=== PATIENT | male | born 1960 | race Caucasian/White ===

== ENCOUNTER 2024-06-17 17:48 | Observation (INO) | payer MEDICARE, SELFPAY ==
[2024-06-17] VITALS (11 sets, daily range): BP systolic 89–142; BP diastolic 52–79; PULSE 58–114; RESP 14–23; TEMP 36.6–36.7; O2SAT 88–99; BMI 38.7
--- NOTE | ~2024-06-17 | XR_ITS ---
EXAMINATION: XR chest 1V portable DATE: 06/18/2024 05:41 INDICATION: Altered mental status TECHNIQUE: frontal view of the chest was obtained. COMPARISON: None FINDINGS: Cardiomegaly. Median sternotomy wires, ostial markers and mediastinal surgical clips consistent with prior coronary artery bypass grafting. A few bilateral calcified pulmonary nodules consistent with o ld granulomatous disease, the largest project over the left lower lung zone. No other airspace opacit ies, pulmonary edema, pleural effusion or pneumothorax. IMPRESSION: 1. Cardiomegaly. Reviewed, dictated and finalized at location A. TENDER IMPRESSION: 1. Cardiomegaly.
--- NOTE | ~2024-06-17 | CT_ITS ---
CT brain wo con Ordering provider: Rishi Pena MD History: 63 years Male with . aloc . Comparison: None. Technique: CT of the head without contrast. Radiation reduction technique utilized.The dose-length product was 1513.33 mGy-cm. FINDINGS: BRAIN PARENCHYMA AND CSF SPACES: Mild leukoaraiosis and diffuse cortical atrophy. Mild atheromatous d isease. The No midline shift, mass effect or hemorrhage. The brain parenchyma and CSF spaces are oth erwise normal. VISUALIZED PARANASAL SINUSES: Well aerated. MASTOIDS: Well aerated. BONES: The bones appear intact. SOFT TISSUES: Visualized nasopharynx is normal. Scalp hematoma seen in the right occipital scalp. Ot herwise, Superficial soft tissues are normal. IMPRESSION: No acute intracranial findings. Reviewed, dictated and finalized at location A. PROFILING MACHINE SET UP OPERATOR
--- NOTE | 2024-06-17 17:54 | ECG_ITS ---
Test Date: 2024-06-17 17:56:04 Measurements Intervals Wesley Rate: 109 P: 6 TN: 144 QRS: 16 QRSD: 88 T: 9 QT: 290 QTc: 392 Interpretive Statements SINUS TACHYCARDIA POSSIBLE LEFT ATRIAL ENLARGEMENT [-0.1mV P WAVE IN V1/V2] POOR R-WAVE PROGRESSION ABNORMAL ECG Electronically Signed On 06-18-2024 08:27:46 EXPLOSIVE OPERATOR SUPERVISOR by Brian Arora M.D.
[2024-06-17 18:16] LABS: Basophils Absolute Auto 0.2 K/mm3 (0.0-0.1); Basophils Percent Auto 1.2 % (0.2-1.2); Eosinophils Absolute Auto 0.2 K/mm3 (0-0.3); Eosinophils Percent Auto 1.5 % (0-4.4); Hematocrit 39.7 % (42.0-52.0); Hemoglobin 10.9 g/dL (14.0-18.0); Immature Granulocyte Absolute 0.32 K/mm3 (0.00-0.031); Immature Granulocyte Percent A 2.1 % (0-0.5); Lymphocytes Absolute Auto 2.11 K/mm3 (0.9-3.2); Mean Corpuscular HGB Conc 27.5 g/dl (32-36); Mean Corpuscular Volume 80.2 fl (80-100); Monocytes Absolute Auto 1.2 K/mm3 (0.1-0.6); Monocytes Percent Auto 8.1 % (2.6-8.5); Neutrophils Percent Auto 73.1 % (45.5-73.1); Nucleated Red Blood Cells Perc 0.4 % (0.0-0.2); Platelet Count Result 528 k/mm3 (150-375); Red Blood Count 4.95 M/mm3 (4.6-6.20); Red Cell Distribution Width 18.6 % (11.5-14.5)
[2024-06-17 18:28] LABS: Alanine Aminotransferase 19 U/L (6-50); Albumin Level 3.4 g/dL (3.5-5.1); Alkaline Phosphatase 85 U/L (38-126); Anion Gap 5 mmol/L (4-12); Aspartate Amino Transferase 48 U/L (17-59); Bilirubin,Total 0.6 mg/dL (0.2-1.3); Blood Urea Nitrogen 29 mg/dL (9-20); Carbon Dioxide 28 mmol/L (22-30); Chloride 102 mmol/L (98-107); Estimated CRCL calculation 30 ml/min; Estimated Glomerular Filt Rate 22; Glucose 97 mg/dL (65-110); Potassium 3.9 mmol/L (3.4-5.0); Sodium 135 mmol/L (137-145)
[2024-06-17 18:29] LABS: INR 1.1; Partial Thromboplastin Time 28.3 Seconds (22.3-36.8); Prothrombin Time 14.7 Seconds (11.1-14.7)
[2024-06-17 18:37] LABS: Ethanol < 10 mg/dL (<10)
[2024-06-17 18:41] LABS: Anisocytosis 1+; Hypochromasia 1+; Platelet Estimate Adequate (Adequate)
[2024-06-17 18:42] LABS: Schistocytes None Seen
[2024-06-17 18:44] LABS: Base Excess ABG -0.8 mEq/l (+/-2.0); Carboxyhemoglobin 1.4 % THb (0-2.0); Fractional Inspired Oxygen 32 %; HCO3 ABG 26.3 mEq/l (22.0-26.0); Oxygen Content ABG 14.9 %vol (16.0-22.0); Oxygen Saturation ABG 94.8 % (95.0-100.0); Oxyhemoglobin 94.3 % THb (90.0-100.0); PCO2 ABG 54.9 mmHg (35.0-45.0); PO2 ABG 81.9 mmHg (80.0-100.0); PO2 FiO2 Ratio Arterial Blood 2.56 %; Reduced Hemoglobin 4.3 %THb (0-5.0); Total Hemoglobin 11.2 g/dL (12.0-18.0)
[2024-06-17 18:49] LABS: Device NASAL CANNULA; Site Drawn LEFT BRACHIAL; pH ABG 7.298 (7.350-7.450)
--- NOTE | 2024-06-17 18:54 | PC.NURSE ---
RN tried to get yani of staff at [facility] in [place] for further information on why 911 was called on the pt, received no answer
[2024-06-17 19:16] LABS: Glucose Point of Care 90 mg/dl (65-105)
--- NOTE | 2024-06-17 19:36 | PC.NURSE ---
Report given to Tangela CHAVARRIA, all questions answered
[2024-06-17 19:40] LABS: Add Urine Microscopic? YES; Appearance Urine Clear (Clear); Bacteria Urine None Seen /hpf; Bilirubin Urine Negative (Negative); Blood Urine Negative (Negative); Color Urine Dark Yellow (Yellow); Glucose Urine UA 1+ mg/dL (Negative); Ketones Urine Negative (Negative); Leukocyte Esterase Ur Negative LEU/UL (Negative); Nitrate Urine Negative (Negative); Non Pathogenic Casts 0-2; Protein Urine 1+ mg/dL (Negative); RBC Urine 0-2 /hpf (0-2); Squamous Epithelial Cell Urine None Seen /hpf (Few); WBC Urine 0-5 /hpf (0-3)
[2024-06-17 19:55] LABS: Amphetamine Screen Urine Negative (Negative); Barbiturate Screen Urine Negative (Negative); Benzodiazepines Screen Urine Positive (Negative); Cannabinoid Screen Urine Negative (Negative); Cocaine Screen Urine Positive (Negative); Methadone Screen Urine Negative (Negative); Opiate Screen Urine Positive (Negative); Phencyclidine Screen Urine Negative (Negative)
--- NOTE | 2024-06-17 20:20 | ED_ITS ---
HPI - Altered Mental Status General Chief Complaint: Altered Mental Status Stated Complaint: AMS Time Seen by Provider: 06/17/24 17:52 Source: patient and EMS Mode of arrival: EMS Limitations: altered mental status History of Present Illness HPI narrative: 63-year-old was brought in from held in an with a complaint of altered mental status. patient upon arrival seems to be quite confused as per the paramedics he was hypoxic with 88 % , He denies any ever or CP . he is a poor Historian . we tried to call the motel several times with no response. MD complaint: altered mental status Onset (ago): unknown Severity: moderate Context: unknown Associated symptoms: denies other symptoms Related Data Allergies Allergy/AdvReac Type Severity Reaction Status Date / Time No Known Allergies Allergy Verified 06/17/24 18:06 Review of Systems 2 Review of Systems: ROS unobtainable: Yes unobtainable due to mental status Exam 2 Narrative: GENERAL:Lethargic , well-nourished, and in no acute distress. HEAD: Normocephalic, atraumatic. EYES: PERRLA and EOMI. ENT: Nares clear, no rhinorrhea or epistaxis. Mucous membranes moist. NECK: Supple. CHEST: Clear to auscultation. No respiratory distress. HEART: Regular rate and rhythm. No murmur heard. Normal peripheral pulses. ABDOMEN: Soft, nontender, nondistended, normal active bowel sounds. EXTREMITIES: Normal range of motion , has a surgical scar on the right knee , has an ulcer on the left leg skin around is indurated SKIN: Warm, dry, no rash. NEURO: No focal deficits. Alert and oriented x3. PSYCH: Normal mood and affect. Course Course Emergency Course: patient is now more alert his oxygen level improved informed him about his lab work agreeable with admission, discussed with Dr. Downs accepted the pt. Vital Signs Vital signs: Vital Signs Temperature 36.6 C 06/17/24 17:54 Pulse Rate 111 H 06/17/24 17:54 Respiratory Rate 15 06/17/24 17:54 Blood Pressure 89/54 L 06/17/24 17:54 Pulse Oximetry 88 L 06/17/24 17:54 Oxygen Delivery Room Air 06/17/24 17:54 Temperature 36.6 C 06/17/24 17:54 Pulse Rate 113 H 06/17/24 19:33 Respiratory Rate 20 06/17/24 19:33 Blood Pressure 125/79 06/17/24 19:33 Pulse Oximetry 99 06/17/24 19:39 Oxygen Delivery Nasal Cannula 06/17/24 19:39 Oxygen Flow Rate 3 06/17/24 19:39 MDM - Altered Mental Status Differential Diagnosis Differential diagnosis: Likely altered mental status, dementia and other ( drug abuse) Lab Data Attestation: I reviewed the patient's lab results. 06/17/24 18:10 06/17/24 18:10 Labs: Lab Results 06/17/24 06/17/24 06/17/24 Range/Units 18:09 18:10 18:34 WBC 15.0 H (4.5-10.0) K/mm3 RBC 4.95 (4.6-6.20) M/mm3 Hgb 10.9 L (14.0-18.0) g/dL Hct 39.7 L (42.0-52.0) % MCV 80.2 (80-100) fl MCH 22.0 L (26-34) pg MCHC 27.5 L (32-36) g/dl RDW 18.6 H (11.5-14.5) % Plt Count 528 H (150-375) k/mm3 MPV 9.0 (7.4-10.4) fl Immature Gran % (Auto) 2.1 H (0-0.5) % Neut % (Auto) 73.1 (45.5-73.1) % Lymph % (Auto) 14.0 L (18.3-44.2) % [place] % (Auto) 8.1 (2.6-8.5) % Eos % (Auto) 1.5 (0-4.4) % Baso % (Auto) 1.2 (0.2-1.2) % Lymph # (Auto) 2.11 (0.9-3.2) K/mm3 [place] # (Auto) 1.2 H (0.1-0.6) K/mm3 Eos # (Auto) 0.2 (0-0.3) K/mm3 Baso # (Auto) 0.2 H (0.0-0.1) K/mm3 Abs Immat Gran (auto) 0.32 H (0.00-0.031) K/mm3 Absolute Neuts (auto) 11.0 H (1.3-6.7) K/mm3 Absolute Nucleated RBC 0.060 H (0.0-0.012) K/mm3 Nucleated RBC % 0.4 H (0.0-0.2) % Platelet Estimate Adequate (Adequate) Hypochromasia 1+ Anisocytosis 1+ Schistocytes None seen PT 14.7 (11.1-14.7) Seconds INR 1.1 APTT 28.3 (22.3-36.8) Seconds Methemoglobin 0.0 (0-1.5) %THb Sodium 135 L (137-145) mmol/L Potassium 3.9 (3.4-5.0) mmol/L Chloride 102 (98-107) mmol/L Carbon Dioxide 28 (22-30) mmol/L Anion Gap 5 (4-12) mmol/L BUN 29 H (9-20) mg/dL Creatinine 2.90 H (0.7-1.3) mg/dL Estim Creat Clear Calc 30 ml/min Estimated GFR 22 L (59 - ) Glucose 97 (65-110) mg/dL POC Capillary Glucose (65-105) mg/dl Calcium 8.0 L (8.4-10.2) mg/dL Total Bilirubin 0.6 (0.2-1.3) mg/dL AST 48 (17-59) U/L ALT 19 (6-50) U/L Alkaline Phosphatase 85 (38-126) U/L Total Protein 7.0 (6.3-8.2) g/dL Albumin 3.4 L (3.5-5.1) g/dL Urine Color (Yellow) Urine Appearance (Clear) Urine pH (5.0-9.0) Ur Specific [place] (1.001-1.035) Urine Protein (Negative) mg/dL Urine Glucose (UA) (Negative) mg/dL Urine Ketones (Negative) mg/dL Ur Blood (Man) (Negative) Urine Nitrate (Negative) Urine Bilirubin (Negative) Urine Urobilinogen (<2.0) mg/dL Leukocyte Esterase Rfl (Negative) ELIS/UL Urine RBC (0-2) /hpf Urine WBC (0-3) /hpf Ur Squamous Epith Cells (Few) /hpf Urine Bacteria /hpf Urine Casts Urine Opiates Screen (Negative) Urine Methadone Screen (Negative) Ur Barbiturates Screen (Negative) Ur Phencyclidine Scrn (Negative) Ur Amphetamine Screen (Negative) U Benzodiazepines Scrn (Negative) Urine Cocaine Screen (Negative) U Cannabinoids Screen (Negative) Ethyl Alcohol < 10 (<10) mg/dL 06/17/24 06/17/24 Range/Units 19:12 19:26 WBC (4.5-10.0) K/mm3 RBC (4.6-6.20) M/mm3 Hgb (14.0-18.0) g/dL Hct (42.0-52.0) % MCV (80-100) fl MCH (26-34) pg MCHC (32-36) g/dl RDW (11.5-14.5) % Plt Count (150-375) k/mm3 MPV (7.4-10.4) fl Immature Gran % (Auto) (0-0.5) % Neut % (Auto) (45.5-73.1) % Lymph % (Auto) (18.3-44.2) % [place] % (Auto) (2.6-8.5) % Eos % (Auto) (0-4.4) % Baso % (Auto) (0.2-1.2) % Lymph # (Auto) (0.9-3.2) K/mm3 [place] # (Auto) (0.1-0.6) K/mm3 Eos # (Auto) (0-0.3) K/mm3 Baso # (Auto) (0.0-0.1) K/mm3 Abs Immat Gran (auto) (0.00-0.031) K/mm3 Absolute Neuts (auto) (1.3-6.7) K/mm3 Absolute Nucleated RBC (0.0-0.012) K/mm3 Nucleated RBC % (0.0-0.2) % Platelet Estimate (Adequate) Hypochromasia Anisocytosis Schistocytes PT (11.1-14.7) Seconds INR APTT (22.3-36.8) Seconds Methemoglobin (0-1.5) %THb Sodium (137-145) mmol/L Potassium (3.4-5.0) mmol/L Chloride (98-107) mmol/L Carbon Dioxide (22-30) mmol/L Anion Gap (4-12) mmol/L BUN (9-20) mg/dL Creatinine (0.7-1.3) mg/dL Estim Creat Clear Calc ml/min Estimated GFR (59 - ) Glucose (65-110) mg/dL POC Capillary Glucose 90 (65-105) mg/dl Calcium (8.4-10.2) mg/dL Total Bilirubin (0.2-1.3) mg/dL AST (17-59) U/L ALT (6-50) U/L Alkaline Phosphatase (38-126) U/L Total Protein (6.3-8.2) g/dL Albumin (3.5-5.1) g/dL Urine Color Dark yellow (Yellow) Urine Appearance Clear (Clear) Urine pH 5.0 (5.0-9.0) Ur Specific [place] 1.020 (1.001-1.035) Urine Protein 1+ H (Negative) mg/dL Urine Glucose (UA) 1+ H (Negative) mg/dL Urine Ketones Negative (Negative) mg/dL Ur Blood (Man) Negative (Negative) Urine Nitrate Negative (Negative) Urine Bilirubin Negative (Negative) Urine Urobilinogen 1.0 (<2.0) mg/dL Leukocyte Esterase Rfl Negative (Negative) ELIS/UL Urine RBC 0-2 (0-2) /hpf Urine WBC 0-5 (0-3) /hpf Ur Squamous Epith Cells None seen (Few) /hpf Urine Bacteria None seen /hpf Urine Casts 0-2 Urine Opiates Screen Positive A (Negative) Urine Methadone Screen Negative (Negative) Ur Barbiturates Screen Negative (Negative) Ur Phencyclidine Scrn Negative (Negative) Ur Amphetamine Screen Negative (Negative) U Benzodiazepines Scrn Positive A (Negative) Urine Cocaine Screen Positive A (Negative) U Cannabinoids Screen Negative (Negative) Ethyl Alcohol (<10) mg/dL ABG Data ABG results: 06/17/24 18:34 Puncture Site Left brachial ABG pH 7.298 L* ABG pCO2 54.9 H ABG pO2 81.9 ABG PO2/FiO2 Ratio 2.56 ABG HCO3 26.3 H ABG O2 Saturation 94.8 L ABG O2 Content 14.9 L ABG Base Excess -0.8 A-a Gradient 82.0 Oxyhemoglobin 94.3 Carboxyhemoglobin 1.4 Reduced Hemoglobin 4.3 Total Hemoglobin 11.2 L O2 Delivery Device Nasal cannula O2 Liters/Min 3.0 FiO2 32 Imaging Data Radiologist's impression: ITS Impressions Head CT 06/17/24 19:12 IMPRESSION: No acute intracranial findings. ECG Data EKG #1: ECG completion date: 06/17/24 ECG completion time: 17:56 EKG Interpretation: tachycardia (109), normal QRS, normal QT and NL axis Discharge Plan Discharge Clinical Impression: Cocaine abuse Altered mental status Qualifiers: Altered mental status type: somnolence Qualified Code(s): R40.0 - Somnolence Non-healing ulcer of lower leg Qualifiers: Laterality: left Non-pressure ulcer stage: with fat layer exposed Qualified Code(s): L97.922 - Non-pressure chronic ulcer of unspecified part of left lower leg with fat layer exposed Patient Disposition: Still a Patient Condition: Stable Patient Language: Beninese Follow-up/Referrals: Jcarlos,MD Mauro [Primary Care Provider] - Time of Disposition: 20:42
--- NOTE | 2024-06-17 20:29 | P.HP_ITS ---
H&P: HPI History of Present Illness Date/Time: 06/17/24 20:29 Chief Complaint: ams Narrative: This is a 63-year-old male with past medical history significant for hypertension, obesity, coronary artery disease. Patient was brought to the emergency room from local hotel where he was found unresponsive. Patient has no recollection of events however he has awake alert oriented x3 patient denies any issues at the time of my visit. Preliminary workup was significant for urinalysis positive for cocaine, opiate and benzo. Initially ABG showed a pH of 7.28, pCO2 of 54 PO2 was 81 chemistry panel showed a creatinine of 2.9 BUN of 21. A CT of the head showed no acute intracranial findings. Patient was found to have an ulcer on the left lower extremity on physical exam for which patient had completed course of doxycycline has been present for the last several weeks. Patient has been admitted for further evaluation management and treatment. CT brain wo con Ordering provider: Rishi Pena MD History: 63 years Male with . aloc . Comparison: None. Technique: CT of the head without contrast. Radiation reduction technique utilized.The dose-length product was 1513.33 mGy- cm. FINDINGS: BRAIN PARENCHYMA AND CSF SPACES: Mild leukoaraiosis and diffuse cortical atrophy. Mild atheromatous disease. The No midline shift, mass effect or hemorrhage. The brain parenchyma and CSF spaces are otherwise normal. VISUALIZED PARANASAL SINUSES: Well aerated. MASTOIDS: Well aerated. BONES: The bones appear intact. SOFT TISSUES: Visualized nasopharynx is normal. Scalp hematoma seen in the ri ght occipital scalp. Otherwise, Superficial soft tissues are normal. IMPRESSION: No acute intracranial findings. Review of Systems Review of Systems: [facility] Social History Social History Smoking status: Never smoker Alcohol intake: never Substance use: never Do You Feel Safe in your Home?: Yes Lack of Transportation: YES Lack of Food: Never True Current Housing: I Do Not Have Housing Concerned About Future Housing: YES Difficulty Paying Gas/Electric Bills: No Difficulty Paying for Meds: No Currently Unemployed: No Education: Decline to Answer Difficulty w/ Childcare or Family Care: No Spiritual care concerns: No Meds Home Medications and Allergies Home Medications ?Medication ?Instructions ?Recorded ?Confirmed ?Type albuterol sulfate 90 mcg/actuation 2 puff inhalation Q6H PRN 06/17/24 06/17/24 History aerosol inhaler shortness of breath or wheezing aspirin 81 mg tablet,delayed 81 mg PO DAILY 06/17/24 06/17/24 History release atorvastatin 40 mg tablet 40 mg PO DAILY 06/17/24 06/17/24 History clopidogrel 75 mg tablet 75 mg PO DAILY 06/17/24 06/17/24 History cyclobenzaprine 10 mg tablet 10 mg PO Q8H PRN muscle spasm 06/17/24 06/17/24 History doxycycline hyclate 100 mg capsule 100 mg PO Q12H 06/17/24 06/17/24 History duloxetine 60 mg capsule,delayed 60 mg PO DAILY 06/17/24 06/17/24 History release furosemide 20 mg tablet 20 mg PO DAILY PRN edema 06/17/24 06/17/24 History gabapentin 800 mg tablet 800 mg PO Q8H 06/17/24 06/17/24 History lisinopril 10 mg tablet 10 mg PO DAILY 06/17/24 06/17/24 History metoprolol tartrate 25 mg tablet 12.5 mg PO Q12H 06/17/24 06/18/24 History oxycodone 5 mg tablet 5 mg PO Q6H PRN pain (scale score 06/18/24 06/18/24 History 7-10) tamsulosin 0.4 mg capsule 0.4 mg PO DAILY 06/18/24 06/18/24 History Allergies Allergy/AdvReac Type Severity Reaction Status Date / Time cefepime Allergy Severe Rash Verified 06/17/24 23:47 morphine Allergy Severe Rash Verified 06/17/24 23:47 Vital Signs Vital Signs - 24 hr 06/17/24 17:54 06/17/24 18:04 06/17/24 18:04 Temperature 97.9 F Pulse Rate 111 H 110 H Respiratory Rate 15 Blood Pressure 89/54 L Pulse Oximetry 88 L 95 Oxygen Delivery Room Air Nasal Cannula Oxygen Flow Rate 3 06/17/24 18:04 06/17/24 19:33 06/17/24 19:39 Temperature Pulse Rate 110 H 113 H Respiratory Rate 19 20 Blood Pressure 91/52 L 125/79 Pulse Oximetry 98 96 99 Oxygen Delivery Nasal Cannula Oxygen Flow Rate 3 Exam Narrative: lying in stretcher Const: General: comfortable, no acute distress, well developed, alert, awake and obese Nutritional Appearance: obese Orientation/consciousness: patient oriented x3 HENMT: Head: normal to inspection, normocephalic and atraumatic Ears: he aring grossly normal bilaterally Face/Nose/Sinus: normal facial exam Face and sinus: normal facial exam Eyes: General: appearance normal, both eyes and all related structures Pupils: Equal, round and reactive pupils present EOM: EOMs intact bilaterally Neck: Neck: full ROM, no lymphadenopathy and no JVD Thyroid: thyroid normal Lymphatic: no lymphadenopathy noted Resp: Effort & Inspection: normal respiratory effort and able to speak in complete sentences Auscultation: clear to auscultation bilaterally Cardio: Jugular venous distension: no JVD Rate: regular rate Rhythm: regular rhythm Heart sounds: S1 normal heart sound present and S2 normal heart sound present GI: Inspection: Pannus present and obesity GI Palp: Yes Soft to palpation and Yes No hepatosplenomegaly present : General: Yes deferred Skin: Rashes: no rashes Wounds: wounds noted ulceration left mid leg size, margins well defined and with surrounding erythema, without odor, open and with surrounding erythema Neuro: General: patient oriented x3 and CN's II-XI intact bilaterally Cranial nerves: Yes CN's II-XII intact bilaterally and Yes Equal, round and reactive pupils present Cognition (Neuro): normal cognition Speech: normal speech Gait exam (Neuro): Unable to assess gait Motor exam (neuro): 5/5 motor strength present throughout Extrem: General: normal to inspection, full ROM, no joint enlargement and no pedal edema Other: b/l le ankle edema H&P: Results Labs Labs: Short CBC 06/17/24 Range/Units 18:10 WBC 15.0 H (4.5-10.0) K/mm3 Hgb 10.9 L (14.0-18.0) g/dL Hct 39.7 L (42.0-52.0) % Plt Count 528 H (150-375) k/mm3 BMP 06/17/24 18:10 Sodium 135 L Potassium 3.9 Chloride 102 Carbon Dioxide 28 BUN 29 H Creatinine 2.90 H Glucose 97 Calcium 8.0 L Liver Function 06/17/24 Range/Units 18:10 Total Bilirubin 0.6 (0.2-1.3) mg/dL AST 48 (17-59) U/L ALT 19 (6-50) U/L Alkaline Phosphatase 85 (38-126) U/L Albumin 3.4 L (3.5-5.1) g/dL Urine 06/17/ Range/Units 19:26 Urine Color Dark yellow (Yellow) Urine Appearance Clear (Clear) Urine pH 5.0 (5.0-9.0) Ur Specific [place] 1.020 (1.001-1.035) Urine Protein 1+ H (Negative) mg/dL Urine Glucose (UA) 1+ H (Negative) mg/dL Assessment and Plan Assessment and plan (1) Non-healing ulcer of lower leg: Qualifiers: Laterality: left Non-pressure ulcer stage: with fat layer exposed Qualified Code(s): L97.922 - Non-pressure chronic ulcer of unspecified part of left lower leg with fat layer exposed Code(s): L97.909 - Non-pressure chronic ulcer of unspecified part of unspecified lower leg with unspecified severity Status: Acute Assessment and Plan: Patient initially started on cefazolin however states that he is allergic to cefazolin Currently on clindamycin Wound care consult (2) Cocaine abuse: Code(s): F14.10 - Cocaine abuse, uncomplicated Status: Acute Assessment and Plan: Continue to monitor (3) Altered mental status: Qualifiers: Altered mental status type: somnolence Qualified Code(s): R40.0 - Somnolence Code(s): R41.82 - Altered mental status, unspecified Status: Acute Assessment and Plan: Likely secondary to ingestion of recreational drugs CT head reviewed (4) Obesity (BMI 35.0-39.9 without comorbidity): Code(s): E66.9 - Obesity, unspecified Status: Acute Assessment and Plan: 1800 calorie restricted diet (5) CAD (coronary artery disease): Code(s): I25.10 - Atherosclerotic heart disease of [place] coronary artery without angina pectoris Status: Acute Assessment and Plan: Continue metoprolol (6) Renal failure: Code(s): N19 - Unspecified kidney failure Status: Acute Assessment and Plan: Patient with a creatinine of 2.9 BUN is 21 Most likely to be chronic however no prior values for comparison Will hold lisinopril in the meantime Gentle hydration Avoid nephrotoxins Daily BMP Hospitalist MIPS Advance Care Plan I have confirmed that the patient's Advanced Care Plan is present, code status is documented, or surrogate decision maker is listed in patient medical record.: Yes Medication Reconciliation I have utilized all available resources to obtain, update and review the patients current medications (includes all prescriptions, OTC, herbals, cannabis, and nutritional supplements).: Yes
--- NOTE | 2024-06-17 20:55 | PC.NURSE ---
upon reassessment of patient.pt was found sitting on the edge of the bed with vital equipment off and oxygen tubing off. pt states, they told me it was time to go . this rn asked for patient to get back into the bed and reapplied vital equipment to patient. pt was a o x 2 upon reassessment. pt did not know his location but was aware of the year, and his name,
--- NOTE | 2024-06-17 22:04 | PC.NURSE ---
pt attempting to get out of bed again. this rn reoriented patient to surroundings and where and why he was here. pt had removed vital equipment at this time. pt unaware of why he is here and states he is in the library. this rn placed put oxygen back onto patient due to low oxygen saturation at this time. pt vitals are 97% on nasal cannula, sinus tachycardia at 113, 13 RR, and bp of 97/59. pt is ao x2 at this time.
[2024-06-17] MEDS: ceFAZolin 1 GM/NS 50 ML 1 GM/50 ML BAG IVPB (22:09)
--- NOTE | 2024-06-17 23:03 | PC.NURSE ---
This patient, Abhinav Corbin, was admitted to IMU Room 231-01. Patient/family oriented to hospital policies and general routines including ID bracelet, bed and alarms, visiting hours, pain management, procedures, bathroom and other care routines, personal items, smoking policy, room service/diet, and visiting hours. Information on how to activate the Rapid Response Team has been discussed. Patient/Family are encouraged to report perceived risks to care and to ask questions if they do not understand what they are told or what they should do.
[2024-06-17 23:58] LABS: Lactic Acid Reflex 1.4 mmol/L (0.7-2.0)
[2024-06-18] VITALS (10 sets, daily range): BP systolic 114–145; BP diastolic 58–89; PULSE 99–109; RESP 18; TEMP 36.4–36.7; O2SAT 93–100
--- NOTE | 2024-06-18 | ECHO_ITS ---
Patient Info Name: Abhinav Corbin Age: 63 years : 1960 Gender: Male Ht: 66 in Wt: 244 lbs BSA: 2.32 m2 HR: 104 bpm BP: 114 / 58 mmHg Heart Rhythm: Sinus Rhythm Technical Quality: Fair Exam Date: 06/18/2024 9:40 AM Exam Location: Echo Lab Patient Status: Inpatient Admit Date: 06/17/2024 Staff Ordering Physician: Susan Velasquez APRN Relaster: Rebecca Reyes RDCS Attending Provider: Rere Downs MD Referring Physician: Ron BARRY; Exam Type: CA echo doppler color flow Study Info Complete two-dimensional, color flow and Doppler transthoracic echocardiogram is performed. Summary 1. Complete two-dimensional, color flow and Doppler transthoracic echocardiogram is performed. 2. Left ventricular chamber dimension is normal. 3. Left ventricular systolic function is normal, estimated at 60-65%. 4. There is mildly increased left ventricular wall thickness. 5. The left ventricular diastolic function is grade II diastolic dysfunction. 6. Left atrial chamber dimension is mildly enlarged. 7. There is mild aortic valve stenosis with a peak velocity of 187 cm/s, mean gradient of 9 mmHg. 8. There is mild aortic valve calcification. 9. The mitral valve has calcified annulus. 10. There is mild mitral valve regurgitation. 11. There is mild tricuspid valve regurgitation. 12. Mild pulmonary hypertension, estimated pulmonary arterial systolic pressure is 37 mmHg. 13. There is mild pulmonic regurgitation. Left Ventricle Left ventricular chamber dimension is normal. Left ventricular systolic function is normal, estimated at 60-65%. There is mildly increased left ventricular wall thickness. The left ventricular diastolic function is grade II diastolic dysfunction. Right Ventricle Right ventricular chamber dimension is normal. Right ventricular systolic function is normal. Left Atria Left atrial chamber dimension is mildly enlarged. Right Atria Right atrial chamber dimension is normal. Atrial Septum Intact interatrial septum visualized by color flow imaging. Aortic Valve There is mild aortic valve stenosis with a peak velocity of 187 cm/s, mean gradient of 9 mmHg. The aortic valve is probable trileaflet. There is trace aortic valve regurgitation. There is mild aortic valve calcification. Pulmonic Valve The pulmonic valve is normal. There is no pulmonic valve stenosis. There is mild pulmonic regurgitation. Mitral Valve The mitral valve has calcified annulus. There is no mitral valve stenosis. There is mild mitral valve regurgitation. Tricuspid Valve The tricuspid valve leaflets are normal. There is no significant tricuspid valve stenosis. There is mild tricuspid valve regurgitation. Mild pulmonary hypertension, estimated pulmonary arterial systolic pressure is 37 mmHg. Pericardium/Pleural The pericardium appears normal. There is no pericardial effusion. Inferior Vena Cava Normal inferior vena cava with >50% collapse upon inspiration consistent with normal right atrial pressure, 5 mmHg. Aorta The aortic root size at the sinus of Valsalva is normal. Left Ventricular Outflow Tract Name Value Normal LVOT 2D LVOT Diameter 2.8 cm LVOT Doppler LVOT Peak Gradient 3 mmHg LVOT Mean Gradient 2 mmHg LVOT VTI 15 cm LVOT VTI/AV VTI Ratio 0.4 LVOT Stroke Volume 94 ml LVOT CO 8.9 l/min LVOT CI 3.8 l/min/m2 Pulmonic Valve Name Value Normal PV Doppler PV Peak Gradient 6 mmHg Mitral Valve Name Value Normal MV Doppler MV Peak Gradient 6 mmHg MV Mean Gradient 2 mmHg MV Decel [place] 734 cm/s2 MV PHT 40 ms MV Area (PHT) 5.4 cm2 4.0-5.0 MV Area (Cont Eq VTI) 5.1 cm2 MV Diastolic Function MV E Peak Velocity 102 cm/s MV A Peak Velocity 67 cm/s MV E/A 1.5 MV Decel Time 139 ms MV Annular TDI MV E/e' (Septal) 14.2 <=8.0 MV E/e' (Lateral) 8.8 <=8.0 MV E/e' (Average) 11.5 Tricuspid Valve Name Value Normal TV Regurgitation Doppler TR Peak Velocity 284 cm/s TR Peak Gradient 32 mmHg Estimated PAP/RSVP RA Pressure 5 mmHg <=5 PA Systolic Pressure 37 mmHg <36 RV Systolic Pressure 37 mmHg <36 Aortic Valve Name Value Normal AV Doppler AV Peak Velocity 187 cm/s AV Peak Gradient 14 mmHg AV Mean Gradient 9 mmHg AV VTI 35 cm AV Area (Cont Eq VTI) 2.7 cm2 >=3.0 AV Area (Cont Eq John) 3.2 cm2 AV Regurgitation 2D LVOT Area 6.1 cm2 Ventricles Name Value Normal LV Dimensions 2D/MM IVS Diastolic Thickness (2D) 1.0 cm 0.6-1.0 LVID Diastole (2D) 6.4 cm 4.2-5.8 LVIW Diastolic Thickness (2D) 1.0 cm 0.6-1.0 LVID Systole (2D) 4.7 cm 2.5-4.0 LVOT Diameter 2.8 cm LV Mass (2D Cubed) 270.97 g 88.00-224.00 LV Mass Index (2D Cubed) 117 g/m2 49-115 Relative Wall Thickness (2D) 0.30 LV Fractional Shortening/Ejection Fraction 2D/MM LV Fractional Shortening (2D) 27 % 25-43 LV EF (2D Teicholz) 52 % 52-72 LV Diastolic Volume (4C MOD) 175 ml LV EF (4C MOD) 49 % LV Diastolic Length (4C) 9.4 cm LV Systolic Length (4C) 7.6 cm LV Stroke Volume (4C MOD) 86 ml Atria Name Value Normal LA Dimensions LA Volume (4C A-L) 91 ml Report Signatures
[2024-06-18] MEDS: SODIUM CHLORIDE 0.9% IV 1,000 ML 125 ML IV CONT ×2 (00:37→10:30)
[2024-06-18] MEDS: CLINDAMYCIN 900 MG/D5W 50 ML 900 MG/50 ML PIGGYBACK 50 MG IVPB ×2 (01:40→10:30)
[2024-06-18 04:55] LABS: Basophils Absolute Auto 0.2 K/mm3 (0.0-0.1); Basophils Percent Auto 1.4 % (0.2-1.2); Eosinophils Absolute Auto 0.3 K/mm3 (0-0.3); Hematocrit 35.6 % (42.0-52.0); Hemoglobin 9.5 g/dL (14.0-18.0); Immature Granulocyte Absolute 0.33 K/mm3 (0.00-0.031); Immature Granulocyte Percent A 2.2 % (0-0.5); Lymphocytes Absolute Auto 1.69 K/mm3 (0.9-3.2); Lymphocytes Percent Auto 11.5 % (18.3-44.2); Mean Corpuscular HGB Conc 26.7 g/dl (32-36); Mean Corpuscular Hemoglobin 21.4 pg (26-34); Mean Corpuscular Volume 80.4 fl (80-100); Mean Platelet Volume 8.8 fl (7.4-10.4); Monocytes Absolute Auto 1.5 K/mm3 (0.1-0.6); Monocytes Percent Auto 9.9 % (2.6-8.5); Neutrophils Absolute Auto 10.8 K/mm3 (1.3-6.7); Nucleated Red Blood Cells Perc 0.3 % (0.0-0.2); Platelet Count Result 467 k/mm3 (150-375); Red Blood Count 4.43 M/mm3 (4.6-6.20); Red Cell Distribution Width 18.7 % (11.5-14.5); White Blood Count 14.8 K/mm3 (4.5-10.0)
[2024-06-18 05:18] LABS: Anisocytosis 1+; Hypochromasia 1+; Platelet Estimate Increased (Adequate); Schistocytes None Seen
[2024-06-18 05:24] LABS: Anion Gap 2 mmol/L (4-12); Blood Urea Nitrogen 33 mg/dL (9-20); Calcium 7.8 mg/dL (8.4-10.2); Carbon Dioxide 31 mmol/L (22-30); Chloride 102 mmol/L (98-107); Estimated CRCL calculation 26 ml/min; Estimated Glomerular Filt Rate 20; Glucose 95 mg/dL (65-110); Sodium 135 mmol/L (137-145)
[2024-06-18 05:30] LABS: Potassium 3.8 mmol/L (3.4-5.0)
--- NOTE | 2024-06-18 08:08 | P.PNIM_ITS ---
Progress Note: A&P Assessment and Plan (1) Altered mental status: Qualifiers: Altered mental status type: somnolence Qualified Code(s): R40.0 - Somnolence Code(s): R41.82 - Altered mental status, unspecified Status: Acute Assessment and Plan: * Likely secondary to drug abuse * Continue neuro checks (2) Leukocytosis: Code(s): D72.829 - Elevated white blood cell count, unspecified Status: Acute Assessment and Plan: * Likely bumped from rhabdomyolysis and acute kidney injury versus infectious process * UA showing 1+ glucose, 1+ urine protein otherwise negative * Blood cultures obtained and are pending * Initial white blood cell count 15.0 now down to 14.8 today * Had 1 dose of Ancef while in the ED and then transition to clindamycin however he does not have any signs and symptoms of infection of that wound and I discontinued the clindamycin * Patient has nonhealing ulcer on left lower extremity--could be source of infection * Chest x-ray showed cardiomegaly (3) Renal failure: Code(s): N19 - Unspecified kidney failure Status: Acute Assessment and Plan: * Initial creatinine 2.90, EGFR 22 * Unsure of patient's baseline * Today creatinine is 3.20 with an EGFR of 20 * UA showing 1+ urine protein, 1+ urine glucose otherwise negative. * CK 1029, will continue to trend--mild rhabdomyolysis likely the cause of his elevated creatinine * Consider nephrology consult (4) Rhabdomyolysis: Code(s): M62.82 - Rhabdomyolysis Status: Acute Assessment and Plan: * Total CK 1029--mild rhabdomyolysis * Acute kidney injury likely secondary to the rhabdomyolysis * Continue IV fluids * Continue to trend creatinine and total CK (5) Cocaine abuse: Code(s): F14.10 - Cocaine abuse, uncomplicated Status: Acute Assessment and Plan: * Urine drug screen positive for cocaine, benzodiazepine, and opiates * Continue to telemetry monitoring * Watch for signs and symptoms of withdrawal * Will obtain echocardiogram today (6) Non-healing ulcer of lower leg: Qualifiers: Laterality: left Non-pressure ulcer stage: with fat layer exposed Qualified Code(s): L97.922 - Non-pressure chronic ulcer of unspecified part of left lower leg with fat layer exposed Code(s): L97.909 - Non-pressure chronic ulcer of unspecified part of unspecified lower leg with unspecified severity Status: Acute Assessment and Plan: * Patient has nonhealing ulcer on the left lower extremity * Patient finished a course of doxycycline recently * He was given a dose of Ancef and then transition to clindamycin however he did not have any signs and symptoms of infection and the clindamycin was discontinued as well * Wound care nurse consulted (7) CAD (coronary artery disease): Code(s): I25.10 - Atherosclerotic heart disease of [place] coronary artery without angina pectoris Status: Acute Assessment and Plan: * Continue aspirin, atorvastatin, and Plavix (8) Hypertension: Code(s): I10 - Essential (primary) hypertension Status: Acute Assessment and Plan: * Blood pressure ranging * Continue metoprolol (9) BPH (benign prostatic hyperplasia): Code(s): N40.0 - Benign prostatic hyperplasia without lower urinary tract symptoms Status: Acute Assessment and Plan: * Continue Flomax * Will bladder scan x1 today (10) Obstructive sleep apnea: Code(s): G47.33 - Obstructive sleep apnea (adult) (pediatric) Status: Acute Time Spent With Patient Time with patient: Greater than 35 minutes Subjective Date/time seen: 06/18/24 08:08 Interval history: Interval history: This is a 63-year-old male with a significant past medical history of hypert ension, obstructive sleep apnea, BPH, obesity, coronary artery disease, cocaine abuse who was brought in for evaluation of altered mental status. Patient was found unresponsive in a hotel room and was brought to the hospital via EMS. EMS found him to be hypoxic in 88%. Workup in the hospital included a head CT which was negative for any acute intracranial findings. Initial labs shown a white b lood cell count of 15.0, hemoglobin 10.9, platelet count 528, INR was 1.1, sodium 135, creatinine 2.90, EGFR 22. A UA was obtained and showed 1+ urine protein, 1+ urine glucose, otherwise negative. Urine drug screen was positive for opiates, benzodiazepine, cocaine. ABG showed a pH of 7.298, pCO2 54.9, PO2 81.9, bicarb 26.3 on 3 L nasal cannula. Blood cultures were obtained and are pending. EKG showing sinus tachycardia with a rate of 109, QTC 392. Patient was given cefazolin in the ED for left lower extremity ulcer. According to the patient he just finished a course of doxycycline for treatment of this ulcer. He was transition to clindamycin. Subjective: Patient denies any fever, chills, nausea, vomiting,diarrhea, abdominal pain.chest pain, or shortness of breath. Patient states that he was staying at the motel as him and his have been having issues. His home is in [facility]. He denied any illicit drug use however his urine drug scre en was positive for cocaine, benzodiazepine, opiates. He states that he does not drink and he does not smoke or have history of using cocaine. Labs and imaging reviewed. Review of Systems Review of Systems: All systems reviewed & are unremarkable except as noted in HPI and below Exam Narrative: General: In no acute distress, well nourished Head: atraumatic, no encephalopathy Eyes:PERRLA, sclera clear ENT: moist mucous membranes, nasal passages clear Neck: supple, no JVD, no adenopathy, trachea midline Cardiac: Normal S1 and S2. RRR, No murmur, gallops or friction rubs, peripheral pulses intact. Respiratory: Lungs clear to auscultation, no adventitious lung sounds, currently on 2 L nasal cannula Gastrointestinal: soft, non-distended, non-tender, normoactive bowel sounds. : voiding without difficulty. Extremities: moves all extremities well, no edema, walks with walker at baseline Skin: Left lower extremity wound open to air, no signs or symptoms of infection Neuro: Alert and oriented x4, cranial nerves intact, no neuro deficits. Psych: normal mood, normal affect, interactive Objective Data Vital Signs Vital Signs: Vital Signs - 24 hr 06/17/24 17:54 06/17/24 18:04 06/17/24 18:04 Temperature 97.9 F Pulse Rate 111 H 110 H Respiratory Rate 15 Blood Pressure 89/54 L Pulse Oximetry 88 L 95 Oxygen Delivery Room Air Nasal Cannula Oxygen Flow Rate 3 06/17/24 18:04 06/17/24 19:33 06/17/24 19:39 Temperature Pulse Rate 110 H 113 H Respiratory Rate 19 20 Blood Pressure 91/52 L 125/79 Pulse Oximetry 98 96 99 Oxygen Delivery Nasal Cannula Oxygen Flow Rate 3 06/17/24 20:54 06/17/24 20:57 06/17/24 22:35 Temperature Pulse Rate 114 H 114 H 112 H Respiratory Rate 14 20 18 Blood Pressure 97/64 L 97/64 L 105/66 Pulse Oximetry 95 97 98 Oxygen Delivery Oxygen Flow Rate 06/17/24 22:54 06/17/24 23:10 06/17/24 23:22 Temperature 98.1 F Pulse Rate 111 H 114 H 58 L Respiratory Rate 23 H 14 Blood Pressure 107/61 142/74 H Pulse Oximetry 98 99 Oxygen Delivery Oxygen Flow Rate 06/17/24 23:39 06/18/24 00:00 06/18/24 01:54 Temperature 98.1 F Pulse Rate 58 L 109 H Respiratory Rate 14 Blood Pressure 142/74 H Pulse Oximetry 99 100 Oxygen Delivery Nasal Cannula Oxygen Flow Rate 3 06/18/24 03:59 06/18/24 04:00 06/18/24 04:00 Temperature 97.6 F Pulse Rate 108 H 107 H Respiratory Rate 18 Blood Pressure 145/89 H Pulse Oximetry 93 98 Oxygen Delivery Nasal Cannula Oxygen Flow Rate 2 06/18/24 05:52 06/18/24 07:31 Temperature 98.0 F Pulse Rate 102 H 104 H Respiratory Rate 18 Blood Pressure 114/58 L Pulse Oximetry 100 Oxygen Delivery Oxygen Flow Rate Intake/Output Intake/Output: Intake & Output 06/15/24 06/16/24 06/17/24 06/18/24 23:59 23:59 23:59 23:59 Intake Total 50 200 Balance 50 200 Meds/Results Medications: Active Medications Generic Name Dose Route Start Last Admin Trade Name Freq PRN Reason Stop Dose Admin Acetaminophen 650 mg 06/17/24 20:53 Acetaminophen 325 Mg Tablet PO Q4H PRN Mild Pain (1-3) or Fever Albuterol 2 puff 06/18/24 00:46 Albuterol Sulfate (*Sp) Aerosol 1 Puff INHALATION Q6HRT PRN shortness of breath or wheezing Aspirin 81 mg 06/18/24 09:00 Aspirin 81 Mg Enteric Tablet PO DAILY OBI Atorvastatin Calcium 40 mg 06/18/24 09:00 Atorvastatin 40 Mg Tablet PO DAILY OBI Clopidogrel Bisulfate 75 mg 06/18/24 09:00 Clopidogrel Bisulfate 75 Mg Tablet PO DAILY OBI Sodium Chloride 1,000 mls @ 125 mls/hr 06/17/24 20:55 06/18/24 00:37 Normal Saline Iv IV CONT 125 mls/hr .Q8H OBI Administration Clindamycin Phosphate 900 mg in 50 mls @ 50 mls/hr 06/18/24 00:55 06/18/24 02:40 Cleocin 900 Mg/D5w 50 Ml IVPB Infused Q8HR OBI Infusion Metoprolol Tartrate 12.5 mg 06/18/24 09:00 Metoprolol Tartrate 12.5 Mg Tablet PO Q12HR OBI Oxycodone HCl 5 mg 06/18/24 00:46 Oxycodone Hcl (*Crx) 5 Mg Tab Ir PO Q6H PRN pain (scale score 7-10) Tamsulosin HCl 0.4 mg 06/18/24 09:00 Tamsulosin Hcl 0.4 Mg Capsule PO DAILY [facility] Radiology Results: ITS Impressions Head CT 06/17/24 19:12 IMPRESSION: No acute intracranial findings. Labs Labs: Laboratory Results - last 24 hr 06/17/24 06/17/24 06/17/24 18:09 18:10 18:34 WBC 15.0 H RBC 4.95 Hgb 10.9 L Hct 39.7 L MCV 80.2 MCH 22.0 L MCHC 27.5 L RDW 18.6 H Plt Count 528 H MPV 9.0 Immature Gran % (Auto) 2.1 H Neut % (Auto) 73.1 Lymph % (Auto) 14.0 L [place] % (Auto) 8.1 Eos % (Auto) 1.5 Baso % (Auto) 1.2 Lymph # (Auto) 2.11 [place] # (Auto) 1.2 H Eos # (Auto) 0.2 Baso # (Auto) 0.2 H Abs Immat Gran (auto) 0.32 H Absolute Neuts (auto) 11.0 H Absolute Nucleated RBC 0.060 H Nucleated RBC % 0.4 H Platelet Estimate Adequate Hypochromasia 1+ Anisocytosis 1+ Schistocytes None seen PT 14.7 INR 1.1 APTT 28.3 Puncture Site Left brachial ABG pH 7.298 L* ABG pCO2 54.9 H ABG pO2 81.9 ABG PO2/FiO2 Ratio 2.56 ABG HCO3 26.3 H ABG O2 Saturation 94.8 L ABG O2 Content 14.9 L ABG Base Excess -0.8 A-a Gradient 82.0 Oxyhemoglobin 94.3 Carboxyhemoglobin 1.4 Methemoglobin 0.0 Reduced Hemoglobin 4.3 Total Hemoglobin 11.2 L O2 Delivery Device Nasal cannula O2 Liters/Min 3.0 FiO2 32 Sodium 135 L Potassium 3.9 Chloride 102 Carbon Dioxide 28 Anion Gap 5 BUN 29 H Creatinine 2.90 H Estim Creat Clear Calc 30 Estimated GFR 22 L Glucose 97 POC Capillary Glucose Lactic Acid Calcium 8.0 L Total Bilirubin 0.6 AST 48 ALT 19 Alkaline Phosphatase 85 Total Protein 7.0 Albumin 3.4 L Urine Color Urine Appearance Urine pH Ur Specific [place] Urine Protein Urine Glucose (UA) Urine Ketones Ur Blood (Man) Urine Nitrate Urine Bilirubin Urine Urobilinogen Leukocyte Esterase Rfl Urine RBC Urine WBC Ur Squamous Epith Cells Urine Bacteria Urine Casts Urine Opiates Screen Urine Methadone Screen Ur Barbiturates Screen Ur Phencyclidine Scrn Ur Amphetamine Screen U Benzodiazepines Scrn Urine Cocaine Screen U Cannabinoids Screen Ethyl Alcohol < 10 06/17/24 06/17/24 06/17/24 19:12 19:26 23:37 WBC RBC Hgb Hct MCV MCH MCHC RDW Plt Count MPV Immature Gran % (Auto) Neut % (Auto) Lymph % (Auto) [place] % (Auto) Eos % (Auto) Baso % (Auto) Lymph # (Auto) [place] # (Auto) Eos # (Auto) Baso # (Auto) Abs Immat Gran (auto) Absolute Neuts (auto) Absolute Nucleated RBC Nucleated RBC % Platelet Estimate Hypochromasia Anisocytosis Schistocytes PT INR APTT Puncture Site ABG pH ABG pCO2 ABG pO2 ABG PO2/FiO2 Ratio ABG HCO3 ABG O2 Saturation ABG O2 Content ABG Base Excess A-a Gradient Oxyhemoglobin Carboxyhemoglobin Methemoglobin Reduced Hemoglobin Total Hemoglobin O2 Delivery Device O2 Liters/Min FiO2 Sodium Potassium Chloride Carbon Dioxide Anion Gap BUN Creatinine Estim Creat Clear Calc Estimated GFR Glucose POC Capillary Glucose 90 Lactic Acid 1.4 Calcium Total Bilirubin AST ALT Alkaline Phosphatase Total Protein Albumin Urine Color Dark yellow Urine Appearance Clear Urine pH 5.0 Ur Specific [place] 1.020 Urine Protein 1+ H Urine Glucose (UA) 1+ H Urine Ketones Negative Ur Blood (Man) Negative Urine Nitrate Negative Urine Bilirubin Negative Urine Urobilinogen 1.0 Leukocyte Esterase Rfl Negative Urine RBC 0-2 Urine WBC 0-5 Ur Squamous Epith Cells None seen Urine Bacteria None seen Urine Casts 0-2 Urine Opiates Screen Positive A Urine Methadone Screen Negative Ur Barbiturates Screen Negative Ur Phencyclidine Scrn Negative Ur Amphetamine Screen Negative U Benzodiazepines Scrn Positive A Urine Cocaine Screen Positive A U Cannabinoids Screen Negative Ethyl Alcohol 06/18/24 04:48 WBC 14.8 H RBC 4.43 L Hgb 9.5 L Hct 35.6 L MCV 80.4 MCH 21.4 L MCHC 26.7 L RDW 18.7 H Plt Count 467 H MPV 8.8 Immature Gran % (Auto) 2.2 H Neut % (Auto) 73.0 Lymph % (Auto) 11.5 L [place] % (Auto) 9.9 H Eos % (Auto) 2.0 Baso % (Auto) 1.4 H Lymph # (Auto) 1.69 [place] # (Auto) 1.5 H Eos # (Auto) 0.3 Baso # (Auto) 0.2 H Abs Immat Gran (auto) 0.33 H Absolute Neuts (auto) 10.8 H Absolute Nucleated RBC 0.050 H Nucleated RBC % 0.3 H Platelet Estimate Increased Hypochromasia 1+ Anisocytosis 1+ Schistocytes None seen PT INR APTT Puncture Site ABG pH ABG pCO2 ABG pO2 ABG PO2/FiO2 Ratio ABG HCO3 ABG O2 Saturation ABG O2 Content ABG Base Excess A-a Gradient Oxyhemoglobin Carboxyhemoglobin Methemoglobin Reduced Hemoglobin Total Hemoglobin O2 Delivery Device O2 Liters/Min FiO2 Sodium 135 L Potassium 3.8 Chloride 102 Carbon Dioxide 31 H Anion Gap 2 L BUN 33 H Creatinine 3.20 H Estim Creat Clear Calc 26 Estimated GFR 20 L Glucose 95 POC Capillary Glucose Lactic Acid Calcium 7.8 L Total Bilirubin AST ALT Alkaline Phosphatase Total Protein Albumin Urine Color Urine Appearance Urine pH Ur Specific [place] Urine Protein Urine Glucose (UA) Urine Ketones Ur Blood (Man) Urine Nitrate Urine Bilirubin Urine Urobilinogen Leukocyte Esterase Rfl Urine RBC Urine WBC Ur Squamous Epith Cells Urine Bacteria Urine Casts Urine Opiates Screen Urine Methadone Screen Ur Barbiturates Screen Ur Phencyclidine Scrn Ur Amphetamine Screen U Benzodiazepines Scrn Urine Cocaine Screen U Cannabinoids Screen Ethyl Alcohol Imaging Radiologist's impression: CT brain wo con Ordering provider: Rishi Pena MD History: 63 years Male with . aloc . Comparison: None. Technique: CT of the head without contrast. Radiation reduction technique utilized.The dose-length product was 1513.33 mGy- cm. FINDINGS: BRAIN PARENCHYMA AND CSF SPACES: Mild leukoaraiosis and diffuse cortical atrophy. Mild atheromatous disease. The No midline shift, mass effect or hemorrhage. The brain parenchyma and CSF spaces are otherwise normal. VISUALIZED PARANASAL SINUSES: Well aerated. MASTOIDS: Well aerated. BONES: The bones appear intact. SOFT TISSUES: Visualized nasopharynx is normal. Scalp hematoma seen in the right occipital scalp. Otherwise, Superficial soft tissues are normal. IMPRESSION: No acute intracranial findings. Reviewed, dictated and finalized at location A. TRUCTION SAFETY CONSULTANT Quality VTE Prophylaxis VTE prophylaxis: pharmacologic ordered
[2024-06-18 09:01] LABS: Creatine Kinase 1029 U/L (55-170)
[2024-06-18 09:07] LABS: Magnesium 1.9 mg/dL (1.6-2.3)
[2024-06-18 09:11] LABS: Hemoglobin A1C 5.6 % (<5.7)
[2024-06-18] MEDS: CLOPIDOGREL BISULFATE 75 MG TABLET PO (10:34)
[2024-06-18] MEDS: ASPIRIN 81 MG ENTERIC TABLET PO (10:35)
[2024-06-18] MEDS: ATORVASTATIN 40 MG TABLET PO (10:36)
[2024-06-18] MEDS: METOPROLOL TARTRATE 12.5 MG TABLET PO (10:36)
[2024-06-18] MEDS: TAMSULOSIN HCL 0.4 MG CAPSULE PO (10:38)
[2024-06-18] MEDS: ENOXAPARIN 40 MG/0.4 ML SYRINGE SUB-Q (10:39)
--- NOTE | 2024-06-18 15:45 | PC.NURSE ---
This patient, Abhinav Corbin, arrived to the /S from IMU @1513 06/18/24. Patient brought to room and immediately stated he is leaving AMA. IV's removed; patient asked by this RN, Corrine Garcia, to sign AMA form; patient refused to sign. Patient left unit at 1545.
== END 2024-06-18 15:45 | disposition left against medical advice (07) ==
LOC: ANHED 20:22 → ANHIMU 06-18 08:55 → ANH3MEDSUR 06-18 15:09
PROVIDERS: Nurse Practitioner Acute Care; Admitting Provider Internal Medicine; Emergency Provider Family Medicine; PCP Family Medicine; Visit Provider Internal Medicine
DX: M62.82 Rhabdomyolysis (principal); N17.9 Acute kidney failure, unspecified; F19.10 Other psychoactive substance abuse, uncomplicated; R40.0 Somnolence; L97.922 Non-pressure chronic ulcer of unspecified part of left lower leg with fat layer exposed; E66.9 Obesity, unspecified; Z68.39 Body mass index [BMI] 39.0-39.9, adult; I10 Essential (primary) hypertension; I25.10 Atherosclerotic heart disease of native coronary artery without angina pectoris; D72.829 Elevated white blood cell count, unspecified; N40.0 Benign prostatic hyperplasia without lower urinary tract symptoms; G47.33 Obstructive sleep apnea (adult) (pediatric); Z79.51 Long term (current) use of inhaled steroids; Z79.82 Long term (current) use of aspirin; Z79.899 Other long term (current) drug therapy; Z88.1 Allergy status to other antibiotic agents
CPT/HCPCS: 36415; 36600; 70450; 71045; 80048; 80053; 80307; 81001; 82077; 82375; 82550; 82805; 82948; 83036; 83050; 83605; 83735; 85018; 85025; 85610; 85730; 87040; 93005; 93306; 96361; 96365; 96367; 96372; 96376; 99285; A9270; G0378; J0690; J1650; J7030

== ENCOUNTER 2024-06-19 09:18 | Emergency (ER) | payer MEDICARE, SELFPAY ==
[2024-06-19] VITALS (7 sets, daily range): BP systolic 127–158; BP diastolic 63–103; PULSE 92–100; RESP 13–26; TEMP 36.5; O2SAT 95–100
--- NOTE | ~2024-06-19 | XR_ITS ---
EXAMINATION: XR chest 2V DATE: 06/19/2024 10:35 INDICATION: Shortness of breath. TECHNIQUE: frontal and lateral views of the chest were obtained. COMPARISON: Chest radiograph dated 06/18/2024 FINDINGS: Patient is rotated towards the right. Cardiomegaly. Median sternotomy wires, ostial markers and media stinal surgical clips consistent with prior coronary artery bypass grafting. Small lung volumes. Mild linear discoid atelectasis at the lateral right lower lung zone. No evident pulmonary edema, pleural effusion or pneumothorax. A few bilateral calcified pulmonary nodules the largest in the left lower lung zone consistent with old granulomatous disease. IMPRESSION: 1. Small lung volumes with mild atelectasis at the right lower lung zone. 2. Cardiomegaly. Reviewed, dictated and finalized at location A. [employer]
--- NOTE | 2024-06-19 09:37 | ECG_ITS ---
Test Date: 2024-06-19 09:52:21 Measurements Intervals [place] Rate: 97 P: 20 MA: 180 QRS: 15 QRSD: 97 T: 7 QT: 312 QTc: 398 Interpretive Statements SINUS RHYTHM NORMAL ECG Electronically Signed On 06-19-2024 13:48:27 [employer]OR [employer]PAIR by Brian Arora M.D.
[2024-06-19] MEDS: SODIUM CHLORIDE 0.9% IV 1,000 ML 999 ML IV CONT (10:14)
[2024-06-19 11:47] LABS: Add Urine Microscopic? YES; Appearance Urine Clear (Clear); Bacteria Urine None Seen /hpf; Bilirubin Urine Negative (Negative); Blood Urine Negative (Negative); Color Urine Yellow (Yellow); Glucose Urine UA 1+ mg/dL (Negative); Ketones Urine Trace mg/dL (Negative); Leukocyte Esterase Ur Negative LEU/UL (Negative); Nitrate Urine Negative (Negative); Non Pathogenic Casts 0-2; Protein Urine 1+ mg/dL (Negative); RBC Urine 0-2 /hpf (0-2); Specific Grav Ur 1.017 (1.001-1.035); Squamous Epithelial Cell Urine None Seen /hpf (Few); Urobilinogen Urine 0.2 mg/dL (<2.0); WBC Urine 0-5 /hpf (0-3)
[2024-06-19 11:56] LABS: Basophils Absolute Auto 0.2 K/mm3 (0.0-0.1); Basophils Percent Auto 1.3 % (0.2-1.2); Eosinophils Absolute Auto 0.1 K/mm3 (0-0.3); Eosinophils Percent Auto 0.9 % (0-4.4); Hematocrit 40.5 % (42.0-52.0); Hemoglobin 10.7 g/dL (14.0-18.0); Immature Granulocyte Absolute 0.32 K/mm3 (0.00-0.031); Immature Granulocyte Percent A 2.4 % (0-0.5); Immature Platelet Fraction Pct 2.3 % (0.9-11.2); Lymphocytes Absolute Auto 1.05 K/mm3 (0.9-3.2); Lymphocytes Percent Auto 7.8 % (18.3-44.2); Mean Corpuscular HGB Conc 26.4 g/dl (32-36); Mean Corpuscular Hemoglobin 21.3 pg (26-34); Mean Corpuscular Volume 80.7 fl (80-100); Mean Platelet Volume 9.2 fl (7.4-10.4); Monocytes Absolute Auto 0.7 K/mm3 (0.1-0.6); Monocytes Percent Auto 5.1 % (2.6-8.5); Neutrophils Absolute Auto 11.2 K/mm3 (1.3-6.7); Neutrophils Percent Auto 82.5 % (45.5-73.1); Platelet Count Result 467 k/mm3 (150-375); Red Blood Count 5.02 M/mm3 (4.6-6.20); Red Cell Distribution Width 18.7 % (11.5-14.5); White Blood Count 13.5 K/mm3 (4.5-10.0)
[2024-06-19 12:01] LABS: Amphetamine Screen Urine Negative (Negative); Barbiturate Screen Urine Negative (Negative); Benzodiazepines Screen Urine Positive (Negative); Cannabinoid Screen Urine Negative (Negative); Cocaine Screen Urine Negative (Negative); Methadone Screen Urine Negative (Negative); Opiate Screen Urine Positive (Negative); Phencyclidine Screen Urine Negative (Negative)
[2024-06-19 12:06] LABS: INR 1.1; Prothrombin Time 14.2 Seconds (11.1-14.7)
[2024-06-19 12:06] LABS: Alanine Aminotransferase 26 U/L (6-50); Albumin Level 3.6 g/dL (3.5-5.1); Alkaline Phosphatase 93 U/L (38-126); Anion Gap 4 mmol/L (4-12); Aspartate Amino Transferase 63 U/L (17-59); Blood Urea Nitrogen 22 mg/dL (9-20); Calcium 8.6 mg/dL (8.4-10.2); Carbon Dioxide 26 mmol/L (22-30); Chloride 104 mmol/L (98-107); Creatine Kinase 547 U/L (55-170); Estimated CRCL calculation 72 ml/min; Estimated Glomerular Filt Rate > 60; Glucose 85 mg/dL (65-110); Lipase 35 U/L (23-300); Magnesium 1.8 mg/dL (1.6-2.3); Phosphorus 2.2 mg/dL (2.5-4.5); Potassium 4.1 mmol/L (3.4-5.0); Sodium 134 mmol/L (137-145)
[2024-06-19 12:07] LABS: Partial Thromboplastin Time 22.6 Seconds (22.3-36.8)
[2024-06-19 12:09] LABS: Ethanol < 10 mg/dL (<10)
[2024-06-19 12:16] LABS: Fractional Inspired Oxygen 21 %; HCO3 VBG 25.1 mEq/l (24.0-30.0); PCO2 VBG 44.1 mmHg (42.0-48.0); PO2 VBG 56.5 mmHg (35.0-45.0); pH VBG 7.373 (7.300-7.400)
[2024-06-19 12:17] LABS: Device ROOM AIR
[2024-06-19 12:17] LABS: Anisocytosis 1+; Hypochromasia 1+; Platelet Estimate Increased (Adequate); Schistocytes None Seen
[2024-06-19 12:19] LABS: Influenza A QL RT-PCR Negative (Negative); Influenza B QL RT-PCR Negative (Negative); RSV RNA, RT-PCR Negative (Negative); SARS-CoV-2 RNA PCR Negative (Negative)
[2024-06-19 12:25] LABS: NT Pro B Type Natriuretic Pept 1160 pg/mL (19.9-100); Troponin I 0.068 ng/mL (0.000-0.034)
--- NOTE | 2024-06-19 12:36 | PCRCNOTE ---
VBG delayed due to the patient being a hard stick; dairy machine operator farmworker called
[2024-06-19 12:46] LABS: Thyroid Stimulating Hormone Reflex 0.079 uIU/mL (0.465-4.68)
--- NOTE | 2024-06-19 12:51 | ECG_ITS ---
Test Date: 2024-06-19 12:54:00 Measurements Intervals [place] Rate: 100 P: 25 OR: 160 QRS: 36 QRSD: 107 T: 48 QT: 327 QTc: 422 Interpretive Statements SINUS TACHYCARDIA POSSIBLE LEFT ATRIAL ENLARGEMENT [-0.1mV P WAVE IN V1/V2] ABNORMAL ECG Compared to ECG 06/19/2024 09:52:21 Sinus rhythm no longer present Electronically Signed On 06-19-2024 13:50:47 [employer] by Brian Arora M.D.
[2024-06-19 13:05] LABS: Lactic Acid Reflex 1.2 mmol/L (0.7-2.0)
[2024-06-19 13:19] LABS: Troponin I 0.062 ng/mL (0.000-0.034)
[2024-06-19 13:31] LABS: Free T4 Free Thyroxine Reflex 1.42 ng/dL (0.78-2.19)
[2024-06-19 14:30] LABS: Total Triiodothyronine (T3) 1.31 NG/ML (0.97-1.69)
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
--- NOTE | 2024-06-19 15:01 | ED.GENADULT ---
HPI - General Adult General Chief complaint: Shortness of Breath/Dyspnea Stated complaint: SOB Time Seen by Provider: 06/19/24 09:23 History of Present Illness HPI narrative: This is a 63-year-old male presenting ED with chief complaint of fatigue. Patient was recently admitted to the hospital in the setting of cocaine benzodiazepine and cannabinoid use. That time he had acute kidney injury. The patient left AMA yesterday. However he had no where to go and is now homeless. Patient denies any use of drugs or alcohol today. He is denying fevers, chest pain difficulty breathing abdominal pain nausea vomiting diarrhea. Patient is somnolent and is not able answer questions very well. Related Data Home Medications ?Medication ?Instructions ?Recorded ?Confirmed ?Last Taken ?Type albuterol sulfate 90 mcg/actuation 2 puff inhalation Q6H PRN 06/17/24 06/17/24 Unknown History aerosol inhaler shortness of breath or wheezing aspirin 81 mg tablet,delayed 81 mg PO DAILY 06/17/24 06/17/24 Unknown History release atorvastatin 40 mg tablet 40 mg PO DAILY 06/17/24 06/17/24 Unknown History clopidogrel 75 mg tablet 75 mg PO DAILY 06/17/24 06/17/24 Unknown History cyclobenzaprine 10 mg tablet 10 mg PO Q8H PRN muscle spasm 06/17/24 06/17/24 Unknown History doxycycline hyclate 100 mg capsule 100 mg PO Q12H 06/17/24 06/17/24 Unknown History duloxetine 60 mg capsule,delayed 60 mg PO DAILY 06/17/24 06/17/24 Unknown History release furosemide 20 mg tablet 20 mg PO DAILY PRN edema 06/17/24 06/17/24 Unknown History gabapentin 800 mg tablet 800 mg PO Q8H 06/17/24 06/17/24 Unknown History lisinopril 10 mg tablet 10 mg PO DAILY 06/17/24 06/17/24 Unknown History metoprolol tartrate 25 mg tablet 12.5 mg PO Q12H 06/17/24 06/18/24 Unknown History oxycodone 5 mg tablet 5 mg PO Q6H PRN pain (scale score 06/18/24 06/18/24 Unknown History 7-10) tamsulosin 0.4 mg capsule 0.4 mg PO DAILY 06/18/24 06/18/24 Unknown History Allergies Allergy/AdvReac Type Severity Reaction Status Date / Time cefepime Allergy Severe Rash Verified 06/17/24 23:47 morphine Allergy Severe Rash Verified 06/17/24 23:47 [facility] Past Medical History Medical History BPH (benign prostatic hyperplasia) Obstructive sleep apnea Hypertension Social History Social History Smoking status: Never smoker Alcohol intake: never Substance use: never Do You Feel Safe in your Home?: Yes Lack of Transportation: YES Lack of Food: Never True Current Housing: I Do Not Have Housing Concerned About Future Housing: YES Difficulty Paying Gas/Electric Bills: No Difficulty Paying for Meds: No Currently Unemployed: No Education: Decline to Answer Difficulty w/ Childcare or Family Care: No Spiritual care concerns: No Exam Narrative: APPEARANCE: Patient appears tired Head: atraumatic. EYES: EOMI, NOSE: Atraumatic NECK: Trachea midline RESPIRATORY: No increased rate of breathing, clear to auscultation CARDIOVASCULAR: RRR, no peripheral edema ABDOMINAL: Non-distended soft nontender MUSCULOSKELETAl: No obvious deformities NEURO: Alert. moving for extremities SKIN:: Warm, dry. Normal color PSYCHIATRIC: Normal affect Course Vital Signs Vital signs: Vital Signs Temperature 97.7 F 06/19/24 09:24 Pulse Rate 100 06/19/24 09:24 Respiratory Rate 13 06/19/24 09:24 Blood Pressure 158/103 H 06/19/24 09:24 Pulse Oximetry 100 06/19/24 09:24 Oxygen Delivery Room Air 06/19/24 09:24 Temperature 97.7 F 06/19/24 09:24 Pulse Rate 100 06/19/24 13:16 Respiratory Rate 26 H 06/19/24 13:16 Blood Pressure 157/80 H 06/19/24 13:16 Pulse Oximetry 99 06/19/24 13:16 Oxygen Delivery Room Air 06/19/24 09:41 Medical Decision Making [facility] Narrative Medical decision making narrative: -Course:This is a 63-year-old male put presenting ED for fatigue. On arrival patient is somewhat somnolent. Broad workup was ordered to evaluate. Workup was largely unremarkable. He is positive for opiates and benzos. Cocaine was negative today. Kidney function returned to baseline. Troponins were flat at 0.06 which are likely chronic as he's had a CABG. He has no chest pain or ischemic changes on EKG. No concern for ACS. Patient was monitored while was workup was completed and several hours after arrived the patient is now far more awake and more lucid. Patient states that he is homeless and is requesting resources. care coordination was consulted he was provided resources. Patient will be discharged. -DDX includes but is not limited to: Substance use disorder, homelessness, dehydration, UTI, pneumonia, viral syndrome Vital Signs Vital Signs: Vital Signs Temperature 97.7 F 06/19/24 09:24 Pulse Rate 100 06/19/24 09:24 Respiratory Rate 13 06/19/24 09:24 Blood Pressure 158/103 H 06/19/24 09:24 Pulse Oximetry 100 06/19/24 09:24 Oxygen Delivery Room Air 06/19/24 09:24 Temperature 97.7 F 06/19/24 09:24 Pulse Rate 100 06/19/24 13:16 Respiratory Rate 26 H 06/19/24 13:16 Blood Pressure 157/80 H 06/19/24 13:16 Pulse Oximetry 99 06/19/24 13:16 Oxygen Delivery Room Air 06/19/24 09:41 Lab Data 06/19/24 11:38 06/19/24 11:38 Labs: Lab Results 06/19/24 06/19/24 06/19/24 Range/Units 09:39 11:05 11:25 WBC (4.5-10.0) K/mm3 RBC (4.6-6.20) M/mm3 Hgb (14.0-18.0) g/dL Hct (42.0-52.0) % MCV (80-100) fl MCH (26-34) pg MCHC (32-36) g/dl RDW (11.5-14.5) % Plt Count (150-375) k/mm3 MPV (7.4-10.4) fl Immature Gran % (Auto) (0-0.5) % Neut % (Auto) (45.5-73.1) % Lymph % (Auto) (18.3-44.2) % [place] % (Auto) (2.6-8.5) % Eos % (Auto) (0-4.4) % Baso % (Auto) (0.2-1.2) % Lymph # (Auto) (0.9-3.2) K/mm3 [place] # (Auto) (0.1-0.6) K/mm3 Eos # (Auto) (0-0.3) K/mm3 Baso # (Auto) (0.0-0.1) K/mm3 Abs Immat Gran (auto) (0.00-0.031) K/mm3 Absolute Neuts (auto) (1.3-6.7) K/mm3 Absolute Nucleated RBC (0.0-0.012) K/mm3 Nucleated RBC % (0.0-0.2) % Platelet Estimate (Adequate) % Immature Plt Fraction (0.9-11.2) % Hypochromasia Anisocytosis Schistocytes PT (11.1-14.7) Seconds INR APTT (22.3-36.8) Seconds Sodium Cancelled Potassium Cancelled Chloride Cancelled Carbon Dioxide Cancelled Anion Gap Cancelled BUN Cancelled Creatinine Cancelled Estim Creat Clear Calc Cancelled Estimated GFR Cancelled Glucose Cancelled Lactic Acid (0.7-2.0) mmol/L Calcium Cancelled Phosphorus (2.5-4.5) mg/dL Magnesium (1.6-2.3) mg/dL Total Bilirubin Cancelled AST Cancelled ALT Cancelled Alkaline Phosphatase Cancelled Total Creatine Kinase (55-170) U/L Troponin I (0.000-0.034) ng/mL NT-Pro-B Natriuret Pep (19.9-100) pg/mL Total Protein Cancelled Albumin Cancelled Lipase (23-300) U/L TSH (Reflex) (0.465-4.68) uIU/mL Free T4 (0.78-2.19) ng/dL Total T3 (0.97-1.69) NG/ML Urine Color Yellow (Yellow) Urine Appearance Clear (Clear) Urine pH 6.0 (5.0-9.0) Ur Specific [place] 1.017 (1.001-1.035) Urine Protein 1+ H (Negative) mg/dL Urine Glucose (UA) 1+ H (Negative) mg/dL Urine Ketones Trace H (Negative) mg/dL Ur Blood (Man) Negative (Negative) Urine Nitrate Negative (Negative) Urine Bilirubin Negative (Negative) Urine Urobilinogen 0.2 (<2.0) mg/dL Leukocyte Esterase Rfl Negative (Negative) ELIS/UL Urine RBC 0-2 (0-2) /hpf Urine WBC 0-5 (0-3) /hpf Ur Squamous Epith Cells None seen (Few) /hpf Urine Bacteria None seen /hpf Urine Casts 0-2 Urine Opiates Screen Positive A (Negative) Urine Methadone Screen Negative (Negative) Ur Barbiturates Screen Negative (Negative) Ur Phencyclidine Scrn Negative (Negative) Ur Amphetamine Screen Negative (Negative) U Benzodiazepines Scrn Positive A (Negative) Urine Cocaine Screen Negative (Negative) U Cannabinoids Screen Negative (Negative) Ethyl Alcohol < 10 (<10) mg/dL Influenza A (RT-PCR) Negative (Negative) Influenza B (RT-PCR) Negative (Negative) RSV (RT-PCR) Negative (Negative) SARS-CoV-2 RNA (RT-PCR) Negative (Negative) 06/19/24 06/19/24 06/19/24 Range/Units 11:38 11:39 12:41 WBC 13.5 H (4.5-10.0) K/mm3 RBC 5.02 (4.6-6.20) M/mm3 Hgb 10.7 L (14.0-18.0) g/dL Hct 40.5 L (42.0-52.0) % MCV 80.7 (80-100) fl MCH 21.3 L (26-34) pg MCHC 26.4 L (32-36) g/dl RDW 18.7 H (11.5-14.5) % Plt Count 467 H (150-375) k/mm3 MPV 9.2 (7.4-10.4) fl Immature Gran % (Auto) 2.4 H (0-0.5) % Neut % (Auto) 82.5 H (45.5-73.1) % Lymph % (Auto) 7.8 L (18.3-44.2) % [place] % (Auto) 5.1 (2.6-8.5) % Eos % (Auto) 0.9 (0-4.4) % Baso % (Auto) 1.3 H (0.2-1.2) % Lymph # (Auto) 1.05 (0.9-3.2) K/mm3 [place] # (Auto) 0.7 H (0.1-0.6) K/mm3 Eos # (Auto) 0.1 (0-0.3) K/mm3 Baso # (Auto) 0.2 H (0.0-0.1) K/mm3 Abs Immat Gran (auto) 0.32 H (0.00-0.031) K/mm3 Absolute Neuts (auto) 11.2 H (1.3-6.7) K/mm3 Absolute Nucleated RBC 0.000 (0.0-0.012) K/mm3 Nucleated RBC % 0.0 (0.0-0.2) % Platelet Estimate Increased (Adequate) % Immature Plt Fraction 2.3 (0.9-11.2) % Hypochromasia 1+ Anisocytosis 1+ Schistocytes None seen PT 14.2 (11.1-14.7) Seconds INR 1.1 APTT 22.6 (22.3-36.8) Seconds Sodium 134 L Potassium 4.1 Chloride 104 Carbon Dioxide 26 Anion Gap 4 BUN 22 H D Creatinine 1.20 Estim Creat Clear Calc 72 Estimated GFR > 60 Glucose 85 Lactic Acid 1.2 (0.7-2.0) mmol/L Calcium 8.6 Phosphorus 2.2 L (2.5-4.5) mg/dL Magnesium 1.8 (1.6-2.3) mg/dL Total Bilirubin 1.0 AST 63 H ALT 26 Alkaline Phosphatase 93 Total Creatine Kinase 547 H (55-170) U/L Troponin I 0.068 H* 0.062 H* (0.000-0.034) ng/mL NT-Pro-B Natriuret Pep 1160 H (19.9-100) pg/mL Total Protein 7.0 Albumin 3.6 Lipase 35 (23-300) U/L TSH (Reflex) 0.079 L (0.465-4.68) uIU/mL Free T4 1.42 (0.78-2.19) ng/dL Total T3 1.31 (0.97-1.69) NG/ML Urine Color (Yellow) Urine Appearance (Clear) Urine pH (5.0-9.0) Ur Specific [place] (1.001-1.035) Urine Protein (Negative) mg/dL Urine Glucose (UA) (Negative) mg/dL Urine Ketones (Negative) mg/dL Ur Blood (Man) (Negative) Urine Nitrate (Negative) Urine Bilirubin (Negative) Urine Urobilinogen (<2.0) mg/dL Leukocyte Esterase Rfl (Negative) ELIS/UL Urine RBC (0-2) /hpf Urine WBC (0-3) /hpf Ur Squamous Epith Cells (Few) /hpf Urine Bacteria /hpf Urine Casts Urine Opiates Screen (Negative) Urine Methadone Screen (Negative) Ur Barbiturates Screen (Negative) Ur Phencyclidine Scrn (Negative) Ur Amphetamine Screen (Negative) U Benzodiazepines Scrn (Negative) Urine Cocaine Screen (Negative) U Cannabinoids Screen (Negative) Ethyl Alcohol (<10) mg/dL Influenza A (RT-PCR) (Negative) Influenza B (RT-PCR) (Negative) RSV (RT-PCR) (Negative) SARS-CoV-2 RNA (RT-PCR) (Negative) ABG Data ABG results: 06/19/24 09:54 VBG pH 7.373 VBG pCO2 44.1 VBG pO2 56.5 H VBG HCO3 25.1 O2 Delivery Device Room air O2 Liters/Min Not Reportable FiO2 21 Discharge Plan Discharge Clinical Impression: Homeless, Substance use disorder Patient Disposition: Home, Self-Care Condition: Stable Instructions: Antibiotic Form, Polysubstance Use Disorder (ED) Additional Instructions: Please follow-up with the resources provided. You can return to the ED if you develop any new or worsening symptoms. Please refrain from drug use. Patient Language: Spanish Prescriptions: No Action albuterol sulfate 90 mcg/actuation HFA aerosol inhaler 2 puff INHALATION Q6H PRN (Reason: shortness of breath or wheezing) aspirin 81 mg tablet,delayed release (DR/EC) 81 mg PO DAILY atorvastatin 40 mg tablet 40 mg PO DAILY clopidogrel 75 mg tablet 75 mg PO DAILY cyclobenzaprine 10 mg tablet 10 mg PO Q8H PRN (Reason: muscle spasm) doxycycline hyclate 100 mg capsule 100 mg PO Q12H duloxetine 60 mg capsule,delayed release(DR/EC) 60 mg PO DAILY furosemide 20 mg tablet 20 mg PO DAILY PRN (Reason: edema) gabapentin 800 mg tablet 800 mg PO Q8H lisinopril 10 mg tablet 10 mg PO DAILY metoprolol tartrate 25 mg tablet 12.5 mg PO Q12H oxycodone 5 mg tablet 5 mg PO Q6H PRN (Reason: pain (scale score 7-10)) tamsulosin 0.4 mg capsule 0.4 mg PO DAILY Follow-up/Referrals: Jcarlos,MD Mauro [Primary Care Provider] -
--- OUTSIDE RECORDS SUMMARY | 2024-06-26 05:34 | XMS_ITS | Continuity of Care Document ---
Author Organization [facility] Address [address] [place] [address] Phone Care Team Providers Care Drosser Name Role Phone Mere Sanchez DO Unavailable Unavailable Advance Directives Directive Yes / No Effective Date File Name No Information Encounters Encounter Description Practice Location Reason(s) For Visit Diagnoses Date Provider Providers Copied on Encounter [facility], [address], [place], [place], [id number], [place] tel:[phone] [facility] No Information Daniel Severino. [address], [place], [id number], [place]. tel:[phone] Family History Family Member Type Diagnosis Age At Onset No Information Payers Payer name Insurance type Covered democrat ID Authoriza tion(s) No Information Social History Type Description Quantity Date Captured Comments Sex Male Smoking Status No Information Chief Complaint And Reason For Visit No Information Reason For Referral Reason For Referral No Information History Of Present Illness Encounter Date Complaint History Of Prese nt Illness No Information Functional Status Date Functional Assessmen t No Information Instructions Date Instruction Additional Infor mation No Information Assessments Type Assessment Date No Information Patient Care Teams Name Effective Dates (start - stop) Status Members No Information
--- OUTSIDE RECORDS SUMMARY | 2024-06-26 05:35 | XMS_ITS | Continuity of Care Document ---
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 Name Role Phone Jeannine Walls MD Unavailable Unavailabl e Allergies, Adverse Reactions, Alerts Substance Reaction Status Criticality No Known Allergies Active No Inform ation Medications Medication Instructions Dosage Effective Dates (start - stop) Status Comments tramadol 50 mg tablet take 1-2 tablet (50MG) by oral route every 6 hours as needed - Active GABAPENTIN (unknown strength) take 3 capsule by oral route every day at bedtime Not Available - Active furosemide 40 mg tablet take 1 tablet by oral route every day 40 MG - Active CYCLOBENZAPRINE HCL (unknown strength) Not Available - Active LISINOPRIL (unknown strength) Not Available - Active ASPIRIN (unknown strength) Not Available - Active hydrocodone 5 mg-acetaminophen 325 mg tablet take 1 - 2 Tablet by oral route every 4 - 6 hours as needed for pain. Max of 10 a day. - No Longer Active Procedures Procedure Date RADEX KNE 3 VIEWS OFFICE/OUTPATIENT VISIT EST EXPLORATION OF KNEE JOINT OFFICE/OUTPATIENT VISIT EST RADEX KNE COMPL 4/MORE VIEWS OFFICE/OUTPATIENT VISIT EST RADEX KNE COMPL 4/MORE VIEWS OFFICE/OUTPATIENT VISIT EST OFFICE/OUTPATIENT VISIT EST RADEX KNE 3 VIEWS OFFICE/OUTPATIENT VISIT EST X-RAY EXAM HIP UNI W PELVIS 2-3 VIEWS Nj RADEX KNE COMPL 4/MORE VIEWS OFFICE/OUTPATIENT VISIT EST RADEX KNE COMPL 4/MORE VIEWS OFFICE/OUTPATIENT VISIT EST RADEX KNE 3 VIEWS OFFICE/OUTPATIENT VISIT EST OFFICE/OUTPATIENT VISIT EST POSTOP FOLLOW-UP VISIT RADEX KNE 3 VIEWS POSTOP FOLLOW-UP VISIT OFFICE/OUTPATIENT VISIT EST OFFICE/OUTPATIENT VISIT EST RADEX KNE COMPL 4/MORE VIEWS RADEX KNE COMPL 4/MORE VIEWS OFFICE/OUTPATIENT VISIT EST OFFICE/OUTPATIENT VISIT EST POSTOP FOLLOW-UP VISIT POSTOP FOLLOW-UP VISIT X-RAY EXAM HIP UNI W PELVIS 1 VIEW POSTOP FOLLOW-UP VISIT POSTOP FOLLOW-UP VISIT X-RAY EXAM HIP UNI 2-3 VIEWS RADEX KNE COMPL 4/MORE VIEWS RADEX KNE COMPL 4/MORE VIEWS OFFICE/OUTPATIENT VISIT EST OFFICE/OUTPATIENT VISIT EST OFFICE/OUTPATIENT VISIT EST OFFICE/OUTPATIENT VISIT EST OFFICE/OUTPATIENT VISIT EST OFFICE/OUTPATIENT VISIT EST OFFICE/OUTPATIENT VISIT EST OFFICE/OUTPATIENT VISIT EST OFFICE/OUTPATIENT VISIT EST OFFICE/OUTPATIENT VISIT EST MU Reporting OFFICE/OUTPATIENT VISIT EST MU Reporting OFFICE/OUTPATIENT VISIT EST MU Reporting OFFICE/OUTPATIENT VISIT EST MU Reporting OFFICE/OUTPATIENT VISIT EST Advance Directives Directive Yes / No Effective Date File Name No Information Encounters Encounter Description Practice Location Reason(s) For Visit Diagnoses Date Provider Providers Copied on Encounter [facility], [address], [place], [address], [place] tel:[phone] [facility] No Information 2 L[place]Hommedi eu [place]. [address], [place], [place], [address] . tel: [phone] OFFICE/OUTPA TIENT VISIT EST [facility], [address] [facility] [address] [address], [place], [address], [place] tel:[phone] [facility] Body mass index [BMI] 37.0-37.9, adultInfection and inflammatory reaction due to internal right knee prosthesis, subsequent encounterPrimary osteoarthritis of left knee 2 Lar[place]ore Chinyere. [address] [facility] [address], [place], [address]. tel: [phone] Referring Provider: Maikel Rizzo [address] [place] [address], [place], [address]. tel:[phone] [facility], [address] [address], [place], [address], [place] tel:[phone] [facility] No Information 2 [place]. [address] [facility] [address] , [place], [place], [address] . tel: [phone] [facility], [address] [facility] [address] [address], [place], [address], [place] tel:[phone] [facility] Pyogenic arthritis of right knee joint, due to unspecified organismStatus post total right knee replacementInfect ion and inflammatory reaction due to internal right knee prosthesis, initial encounterOther staphylococcus as the cause of diseases classified elsewhere 2 [place]. [address] [facility] [address] , [place], [place], [address] . tel: [phone] OFFICE/OUTPA TIENT VISIT EST [facility], [address] [facility] [address] [address], [place], [address], [place] tel:[phone] [facility] Primary osteoarthritis of left knee Sep-0 201 9 [place] Chinyere. [address], [place], [address]. tel: [phone] OFFICE/OUTPA TIENT VISIT EST [facility], [address] [facility] [address], [place], [address], [place] tel:[phone] [facility] Primary osteoarthritis of left kneeBody mass index (BMI) 39.0-39.9, adult -201 9 Laramrobina Alejoa. [address], [place], [address]. tel: [phone] OFFICE/OUTPA TIENT VISIT EST [facility], [address] [facility] [address], [place], [address], [place] tel:[phone] [facility] Primary osteoarthritis of left knee 0 8 [place] Chinyere. [address], [place], [address]. tel: [phone] OFFICE/OUTPA TIENT VISIT EST [facility], [address] [address], [place], [address], [place] tel:[phone] [facility] Primary osteoarthritis of left knee 8 [place] Chinyere. [address], [place], [address]. tel: [phone] Referring Provider: Maikel Rizzo [address] [place] [address] , [place], [address]. tel:[phone] OFFICE/OUTPA TIENT VISIT EST [facility], [address] [address], [place], [address], [place] tel:[phone] [facility] Status post total right knee replacementSprain of medial collateral ligament of right knee, initial encounter 8 Og Paez. [address] [facility], [place], [place], [address] . tel: [phone] OFFICE/OUTPA TIENT VISIT EST [facility], [address] [facility], [place], [address], [place] tel:[phone] [facility] Primary osteoarthritis of left kneePain in right hipAcute right-sided low back pain without sciatica Aug-1 3-201 8 Lar[place] Chinyere. [address], [place], [address]. tel: [phone] OFFICE/OUTPA TIENT VISIT EST [facility], [address], [place], [address], [place] tel:[phone] [facility] Primary osteoarthritis of left knee May- 2-201 7 Lar[place] Chinyere. [address], [place], [address]. tel: [phone] OFFICE/OUTPA TIENT VISIT EST [facility], [address], [place], [address], [place] tel:[phone] [facility] Status post total right knee replacementPrimar y osteoarthritis of left knee Sep-0 8-201 7 Laramore Chinyere. [address], [place], [address]. tel: [phone] OFFICE/OUTPA TIENT VISIT EST [facility], [address], [place], [address], [place] tel:[phone] [facility] Primary osteoarthritis of left knee October-3 0-201 7 Francaamrobina Alejoa. [address], [place], [address]. tel: [phone] [facility], [address], [place], [address], [place] tel:[phone] [facility] Status post total right knee replacement Apr-0 4-201 7 [place]. [address], [place], [place], [address] . tel: [phone] [facility], [address], [place], [address], [place] tel:[phone] [facility] Status post total right knee replacementPrimar y osteoarthritis of left knee Aug-2 1-201 7 Lar[place] Chinyere. [address], [place], [address]. tel: [phone] OFFICE/OUTPA TIENT VISIT EST [facility], [address] [address], [place], [address], [place] tel:[phone] [facility] Primary osteoarthritis of left knee Feb-2 8-201 7 Lar[place] Chinyere. [address], [place], [address]. tel: [phone] [facility], [address] [address], [place], [address], [place] tel:[phone] [facility] Primary osteoarthritis of right kneeStatus post total right knee replacementPrimar y osteoarthritis of both knees Feb-0 8-201 7 L[place]Hom[place]. [address] [facility] [address] , [place], [place], [address] . tel: [phone] OFFICE/OUTPA TIENT VISIT EST [facility], [address] [address], [place], [address], [place] tel:[phone] [facility] Body mass index (BMI) 36.0-36.9, adultPrimary osteoarthritis of left kneePrimary osteoarthritis of right knee Feb-0 7-201 7 L[place]Hom[place]. [address] [facility] [address] , [place], [place], [address] . tel: [phone] OFFICE/OUTPA TIENT VISIT EST [facility], [address] [address], [place], [address], [place] tel:[phone] [facility] Primary osteoarthritis of right kneePrimary osteoarthritis of left knee Dec-0 6-201 6 Lar[place]ore Chinyere. [address] [employer] [facility] [employer] [facility] [address], [place], [address]. tel: [phone] OFFICE/OUTPA TIENT VISIT EST [facility], [address] [facility] [address] [address], [place], [address], [place] tel:[phone] [facility] Primary osteoarthritis of left kneePrimary osteoarthritis of right knee Sep-0 1-201 6 [place] Chinyere[address], [place], [address]. tel: [phone] [facility], [address] [facility] [address], [place], [address], [place] tel:[phone] [facility] Primary osteoarthritis of right kneePrimary osteoarthritis of left knee 0 5201 6 Laramore Chinyere. [address], [place], [address]. tel: [phone] [facility], [address] [facility] [address], [place], [address], [place] tel:[phone] [facility] Primary osteoarthritis of left kneePrimary osteoarthritis of right knee 9 6 Laramore Chinyere. [address], [place], [address]. tel: [phone] [facility], [address], [place], [address], [place] tel:[phone] [facility] Primary osteoarthritis of right kneePrimary osteoarthritis of left knee 6 Laramore Chinyere. [address], [place], [address]. tel: [phone] [facility], [address] [facility], [place], [address], [place] tel:[phone] [facility] Primary osteoarthritis of left kneePrimary osteoarthritis of right knee 0 6 Laramore Chinyere. [address], [place], [address]. tel: [phone] [facility], [address] [facility] [address], [place], [address], [place] tel:[phone] [facility] Status post total hip replacement, leftPrimary osteoarthritis of right kneePrimary osteoarthritis of left knee 6 L[place]Hom[place]. [address], [place], [place], [address] . tel: [phone] [facility], [address] [address], [place], [address], [place] tel:[phone] [facility] Primary osteoarthritis of left hip Apr-0 4-201 6 L'Hommedi eu [place]. [address] , [place], [place], [address] . tel: [phone] [facility], [address] [address], [place], [address], [place] tel:[phone] [facility] Status post total hip replacement, leftPrimary osteoarthritis of left hipPrimary osteoarthritis of left kneePrimary osteoarthritis of right knee Aug-2 9-201 6 L'Hommedi eu [place]. [address] , [place], [place], [address] . tel: [phone] Referring Provider: Maikel Rizzo [address] [place] [address] , [place], [address]. tel:[phone] [facility], [address] [address], [place], [address], [place] tel:[phone] [facility] Status post total hip replacement, left Aug-1 5-201 6 Lar[place]ore Chinyere. [address] [facility] [address], [place], [address]. tel: [phone] OFFICE/OUTPA TIENT VISIT EST [facility], [address] [facility] [address] [facility] [address], [place], [address], [place] tel:[phone] [facility] Primary osteoarthritis of left hipPrimary osteoarthritis of right kneePrimary osteoarthritis of left kneeRetained orthopedic hardware Richardson-0 5-201 6 L'Hommedi eu [place]. [address] , [place], [place], [address] . tel: [phone] [facility], [address] [address], [place], [address], [place] tel:[phone] [facility] Primary osteoarthritis of left hipLeft leg pain Dec-2 1-201 5 L'Hommedi eu [place]. [address] , [place], [place], [address] . tel: [phone] OFFICE/OUTPA TIENT VISIT EST [facility], [address], [place], [address], [place] tel:[phone] [facility] Osteoarthrosis, localized, primary, involving lowePain in joint involving lower legOsteoarthritis of left hip Apr-0 7-201 5 Lar[place] Chinyere. [address], [place], [address]. tel: [phone] [facility], [address], [place], [address], [place] tel:[phone] [facility] Osteoarthrosis, localized, primary, involving lowePain in joint involving lower leg Mar-2 4-201 5 Lar[place] Chinyere. [address], [place], [address]. tel: [phone] OFFICE/OUTPA TIENT VISIT EST [facility], [address], [place], [address], [place] tel:[phone] [facility] Pain in joint involving lower leg Mar-1 3-201 5 L'Hommedi eu [place]. [address] [facility], [place], [place], [address] . tel: [phone] OFFICE/OUTPA TIENT VISIT EST [facility], [address], [place], [address], [place] tel:[phone] [facility] Osteoarthrosis, localized, primary, involving lowePain in joint involving lower leg Mar-0 6-201 5 Lar[place] Chinyere. [address], [place], [address]. tel: [phone] OFFICE/OUTPA TIENT VISIT EST [facility], [address], [place], [address], [place] tel:[phone] [facility] Osteoarthrosis, localized, primary, involving lowePain in joint involving lower leg Richardson-0 8-201 5 Lar[place] Chinyere. [address], [place], [address]. tel: [phone] OFFICE/OUTPA TIENT VISIT EST [facility], [address] [facility] [address], [place], [address], [place] tel:[phone] [facility] Osteoarthrosis, localized, primary, involving lowePain in joint involving lower leg Mar-0 7-201 4 [place] Chinyere. [address], [place], [address]. tel: [phone] OFFICE/OUTPA TIENT VISIT EST [facility], [address] [employer] [facility] [address], [place], [address], [place] tel:[phone] [facility] Pain in joint involving lower legOsteoarthrosis , localized, primary, involving lowe Sep-2 3-201 4 [place]. [address], [place], [place], [address] . tel: [phone] OFFICE/OUTPA TIENT VISIT EST [facility], [address] [facility], [place], [address], [place] tel:[phone] [facility] Follow Up of Link knees (chief complaint) Osteoarthrosis, localized, primary, involving lowePain in joint involving lower leg Dec-0 8-201 4 [place] Chinyere. [address], [place], [address]. tel: [phone] OFFICE/OUTPA TIENT VISIT EST [facility], [address] [facility], [place], [address], [place] tel:[phone] [facility] Bilat knee OA (chief complaint) Osteoarthrosis, localized, primary, involving lowePain in joint involving lower leg Aug-2 1-201 4 Lar[place] Chinyere. [address], [place], [address]. tel: [phone] OFFICE/OUTPA TIENT VISIT EST [facility], [address] [facility] [address], [place], [address], [place] tel:[phone] [facility] Bilat knee pain (chief complaint) Osteoarthrosis, localized, primary, involving lowePain in joint involving lower leg Richardson-0 3-201 4 Lar[place] Chinyere. [address], [place], [address]. tel: [phone] OFFICE/OUTPA TIENT VISIT EST [facility], [address], [place], [address], [place] tel:[phone] [facility] LINK KNEES (chief complaint) Osteoarthrosis, localized, primary, involving lowePain in joint involving lower legVaricose veinLeg pain Jan-0 6-201 3 [place] Chinyere. [address], [place], [address]. tel: [phone] OFFICE/OUTPA TIENT VISIT EST [facility], [address] [address], [place], [address], [place] tel:[phone] [facility] Rt knee OA (chief complaint) Osteoarthrosis, localized, primary, involving lower legPain in joint involving lower leg October-0 7-201 3 [place]. [address] , [place], [place], [address] . tel: [phone] OFFICE/OUTPA TIENT VISIT EST [facility], [address] [address], [place], [address], [place] tel:[phone] [facility] Bilateral Knee Pain (chief complaint) Osteoarthrosis, localized, primary, involving lower legPain in joint involving lower leg Mar-0 4-201 2 [place]Hom[place]. [address] , [place], [place], [address] . tel: [phone] OFFICE/OUTPA TIENT VISIT EST [facility], [address] [address], [place], [address], [place] tel:[phone] [facility] Bilat knee OA (chief complaint) Osteoarthrosis, localized, primary, involving lower legPain in joint involving lower leg 6- 2 L'Hommedi eu [place]. [address] , [place], [place], [address] . tel:[phone] [facility], [address] [facility] [address], [place], [address], [place] tel:[phone] [facility] Pain in joint involving lower legOsteoarthrosis , localized, primary, involving lower leg 2 L'Hommedi ofelia Paez. [address] , [place], [place], [address] . tel: [phone] Family History Family Member Type Diagnosis Age At Onset Father Problem Cardiovascular disease Father Problem Cancer, unknown type Payers Payer name Insurance type Covered constitution party ID Authoriza tion(s) No Information Social History Type Description Quantity Date Captured Comments Alcohol Use Details Unknown Caffeine Use Details Unknown Tobacco Use Status No Information Smoking Status No Information Sex Male Chief Complaint And Reason For Visit No Information Reason For Referral Reason For Referral No Information Plan Of Treatment Date Type Action Status Referral Ordered: X-RAY EXAM HIP UNI W PELVIS 2-3 VIEWS RT hip ordered Referral Ordered: RADEX KNE COMPL 4/MORE VIEWS LT knee ordered Referral Ordered: RADEX KNE 3 VIEWS RT knee ordered Referral Ordered: RADEX KNE 3 VIEWS RT ordered Referral Ordered: INJECTION Bilateral Appointment date/timeframe: 01/09/2016 ordered Referral Ordered: X-RAY EXAM HIP UNI W PELVIS 1 VIEW LT ordered Referral Ordered: RADEX KNE COMPL 4/MORE VIEWS LT ordered Referral Ordered: X-RAY EXAM HIP UNI 2-3 VIEWS LT ordered Referral Ordered: INJECTION LT Appointment date/timeframe: 08/25/2014 ordered Referral Ordered: RADEX KNE COMPL 4/MORE VIEWS RT ordered Referral Ordered: RADEX KNE 3 VIEWS Bilateral ordered Referral Ordered: INJECTION Bilateral knee ordered Referral Ordered: RADEX KNE COMPL 4/MORE VIEWS Bilateral ordered History Of Present Illness Encounter Date Complaint History Of Prese nt Illness Follow Up of Link knees Functional Status Date Functional Assessmen t No Information Instructions Date Instruction Additional Infor marc Giving encouragement to exercise Related to Body mass index [BMI] 37.0-37.9, adult Giving encouragement to exercise Related to Body mass index (BMI) 39.0-39.9, adult Apply ice 20 min per hour Relate d to Primary osteoarthritis of left knee call with increased pain Related to Primary osteoarthritis of left knee Apply ice 20 min per hour Relate d to Primary osteoarthritis of left knee Discussed treatment options Rela sp to Sprain of medial collateral ligament of right knee, initial encounter Take medication/NSAID as directe d. Related to Primary osteoarthritis of left knee Apply ice 20 min per hour Relate d to Primary osteoarthritis of left knee Apply cold 20 min per hour. Rela sp to Primary osteoarthritis of left knee Discussed treatment options Rela sp to Status post total right knee replacement Call for increase in pain Relate d to Status post total right knee replacement Home exercise program. Related t o Primary osteoarthritis of left knee Discussed surgical options Relat ed to Primary osteoarthritis of right knee Giving encouragement to exercise Related to Body mass index (BMI) 36.0-36.9, adult Home exercise program. Related t o Primary osteoarthritis of right knee Home exercise program. Related t o Primary osteoarthritis of left knee Home exercise program. Related t o Primary osteoarthritis of right knee Rest, ice and elevate. Related t o Pain in joint involving lower leg Physical activity counseling Rel ated to Dietary Surveillance Counseling Ice as instructed Activity as tolerated OTC anti-inflammatories (NSAIDs) OTC anti-inflammatories (NSAIDs) Activity as tolerated Ice as instructed Physical activity counseling Rel ated to Dietary Surveillance Counseling Continue medication as prescribe d Activity as tolerated Ice as instructed Activity as tolerated Physical activity counseling Rel ated to Dietary Surveillance counseling Physical activity counseling Rel ated to Dietary Surveillance counseling OTC anti-inflammatories (NSAIDs) Activity as tolerated Ice as instructed Assessments Type Assessment Date No Information Patient Care Teams Name Effective Dates (start - stop) Status Members No Information
== END 2024-06-19 15:36 | disposition home or self-care (01) ==
PROVIDERS: Emergency Provider Emergency Medicine; PCP Family Medicine
DX: F19.90 Other psychoactive substance use, unspecified, uncomplicated (principal); Z59.00 Homelessness unspecified; Z79.82 Long term (current) use of aspirin; G47.33 Obstructive sleep apnea (adult) (pediatric); I10 Essential (primary) hypertension; Z20.822 Contact with and (suspected) exposure to COVID-19
CPT/HCPCS: 36415; 71046; 80053; 80307; 81001; 82077; 82550; 82803; 83605; 83690; 83735; 83880; 84100; 84439; 84443; 84480; 84484; 85025; 85055; 85610; 85730; 87040; 87637; 93005; 96360; 99284; J7030